=== PATIENT | male | born 1945 | race Caucasian/White ===

== ENCOUNTER 2016-12-03 12:14 | Emergency (ER) | payer OTHER ==
[2016-12-03 12:34] VITALS: RESP 16; TEMP 98.2
--- NOTE | 2016-12-03 13:02 | EDPHY ---
H & P Time Seen by Provider: 12/03/16 13:13 HPI/ROS: CHIEF COMPLAINT: Dog bite HISTORY OF PRESENT ILLNESS: This is a 71-year-old gentleman presenting to the emergency department reports being bit by his dog yesterday around 1600. Patient states he was grabbing the flies water and went to hit the fly when his dog bit him on his right hand. Patient states his did give him a couple of doses of doxycycline at home, but today has noticed swelling and redness to his left hand. Dog is up-to-date on all vaccines, patient states tetanus up-to- date. Denies any fever chills REVIEW OF SYSTEMS: Constitutional: No fever, no chills. Eyes: No blurred vision ENT: No sore throat. Cardiovascular: No chest pain, no palpitations. Respiratory: No cough, no shortness of breath. Gastrointestinal: No abdominal pain, no vomiting. Genitourinary: No urinary discomfort Musculoskeletal: No back pain. Right hand pain Skin: No rashes. Dog bite to right hand with redness Neurological: No headache. Smoking Status: Former smoker Physical Exam: General Appearance: Alert, no distress. Eyes: Pupils equal and round no pallor or injection. ENT, Mouth: Mucous membranes moist. Respiratory: There are no retractions, lungs are clear to auscultation. Cardiovascular: Regular rate and rhythm. Gastrointestinal: Abdomen is soft and nontender, no masses, bowel sounds normal. Neurological: No focal deficits Skin: Warm and dry, no rashes. Puncture wound noted to his dorsal aspect of right hand Musculoskeletal: Neck is supple nontender. Redness and mild swelling noted to right hand. No lymphangitis noted Extremities: symmetrical, full range of motion. Psychiatric: Patient is oriented X 3, there is no agitation. Constitutional: Initial Vital Signs Temperature (C) 36.8 C 12/03/16 12:16 Heart Rate 54 L 12/03/16 12:16 Respiratory Rate 16 12/03/16 12:16 Blood Pressure 152/66 H 12/03/16 12:16 O2 Sat (%) 96 12/03/16 12:16 O2 Delivery Mode Room Air Allergies/Adverse Reactions: No Known Allergies Allergy (Verified 12/03/16 12:15) Home Medications: Medication Instructions Recorded Enalapril Maleate [Vasotec 10 MG 20 mg PO DAILY 05/10/15 (*)] Metoprolol Tartrate [Lopressor 50 50 mg PO BID 05/10/15 mg (*)] Aspirin [Aspirin 325 mg (*)] 325 mg PO DAILY 08/24/15 Clopidogrel Bisulfate [Clopidogrel] 75 mg PO DAILY 08/24/15 Atorvastatin Calcium [Lipitor] 40 mg PO DAILY #30 tab 09/01/15 Ranolazine [Ranexa] 1,000 mg PO BID #60 tab.er 09/01/15 Clindamycin HCl [Clindamycin] 300 mg PO TID #30 cap 12/03/16 Medical Decision Making ED Course/Re-evaluation: Discussed the plan of care: CBC CMP, clindamycin 600 mg IV 1430: Discussed following up with Dr. Mims in the next couple days. Also discussed discharge instructions and monitoring for any worsening signs of infection if this should occur return to the ER. Discharge home---> stable. Differential Diagnosis: Other differential diagnosis considered but not limited to foreign body, lymphangitis, and laceration - Data Points Laboratory Results: Laboratory Results 12/03/16 13:15 12/03/16 13:15 12/03/16 12/03/16 13:15 13:15 WBC 7.32 10^3/uL 10^3/uL (3.80-9.50) RBC 4.21 10^6/uL L 10^6/uL (4.40-6.38) Hgb 13.8 g/dL g/dL (13.7-17.5) Hct 40.3 % % (40.0-51.0) MCV 95.7 fL fL (81.5-99.8) MCH 32.8 pg pg (27.9-34.1) MCHC 34.2 g/dL g/dL (32.4-36.7) RDW 13.1 % % (11.5-15.2) Plt Count 137 10^3/uL L 10^3/uL (150-400) MPV 9.7 fL fL (8.7-11.7) Neut % (Auto) 65.0 % % (39.3-74.2) Lymph % (Auto) 22.0 % % (15.0-45.0) Kidder % (Auto) 6.7 % % (4.5-13.0) Eos % (Auto) 5.5 % % (0.6-7.6) Baso % (Auto) 0.5 % % (0.3-1.7) Nucleat RBC Rel Count 0.0 % % (0.0-0.2) Absolute Neuts (auto) 4.76 10^3/uL 10^3/uL (1.70-6.50) Absolute Lymphs (auto) 1.61 10^3/uL 10^3/uL (1.00-3.00) Absolute Monos (auto) 0.49 10^3/uL 10^3/uL (0.30-0.80) Absolute Eos (auto) 0.40 10^3/uL 10^3/uL (0.03-0.40) Absolute Basos (auto) 0.04 10^3/uL 10^3/uL (0.02-0.10) Absolute Nucleated RBC 0.00 10^3/uL 10^3/uL (0-0.01) Immature Gran % 0.3 % % (0.0-1.1) Immature Gran # 0.02 10^3/uL 10^3/uL (0.00-0.10) Sodium 144 mEq/L mEq/L (134-144) Potassium 4.4 mEq/L mEq/L (3.5-5.2) Chloride 113 mEq/L H mEq/L (97-110) Carbon Dioxide 21 mEq/l L mEq/l (22-31) Anion Gap 10 mEq/L mEq/L (8-16) BUN 17 mg/dL mg/dL (7-23) Creatinine 0.8 mg/dL mg/dL (0.7-1.3) Estimated GFR > 60 Glucose 116 mg/dL H mg/dL (70-100) Calcium 8.9 mg/dL mg/dL (8.5-10.4) Medications Given: Discontinued Medications Clindamycin Phosphate/Dextrose (Cleocin 600 Mg (Premix)) 50 mls @ 100 mls/hr IV ONCE ONE PRN Reason: Protocol Stop: 12/03/16 13:32 Last Admin: 12/03/16 13:25 Dose: 50 mls Departure - Departure Disposition: Home, Routine, Self-Care Clinical Impression: Cellulitis Qualifiers: Site of cellulitis: extremity Site of cellulitis of extremity: upper extremity Laterality: right Qualified Code(s): L03.113 - Cellulitis of right upper limb Dog bite Qualifiers: Encounter type: initial encounter Qualified Code(s): W54.0XXA - Bitten by dog, initial encounter Condition: Good Instructions: Animal Bite (ED), Cellulitis (ED) Additional Instructions: Discussed discharge instructions the patient 1. Take all antibiotics as prescribed 2. Monitor for any worsening infection. I have drawn a line around the redness if the redness had spread increase in swelling return to the ER 3. Follow up Dr. Mims this week Referrals: Demetrius Mims MD [Primary Care Provider] - As per Instructions Prescriptions: Clindamycin HCl [Clindamycin] 300 mg PO TID #30 cap
[2016-12-03] MEDS ORDERED: CLINDAMYCIN 600 MG/DEXTROSE 50 ML IV ONE (13:03)
[2016-12-03 13:19] LABS: % IMMATURE GRANULYOCYTES 0.3 % (0.0-1.1); ABSOLUTE IMMATURE GRANULOCYTES 0.02 10^3/uL (0.00-0.10); ADD DIFF? NO; ADD MORPH? NO; ADD SCAN? NO; ATYPICAL LYMPHOCYTE FLAG 10 (0-99); FRAGMENT RBC FLAG 0 (0-99); HEMATOCRIT 40.3 % (40.0-51.0); HEMOGLOBIN 13.8 g/dL (13.7-17.5); LEFT SHIFT FLG 0 (0-99); LIPEMIA HEMOLYSIS FLAG 90 (0-99); MEAN CELL HEMOGLOBIN 32.8 pg (27.9-34.1); MEAN CELL HEMOGLOBIN CONCENTR. 34.2 g/dL (32.4-36.7); MEAN CELL VOLUME 95.7 fL (81.5-99.8); MEAN PLATELET VOLUME 9.7 fL (8.7-11.7); PLATELET CLUMPS FLAG 0 (0-99); PLATELET COUNT 137 10^3/uL (150-400); RED BLOOD CELL COUNT 4.21 10^6/uL (4.40-6.38); RED CELL DISTRIBUTION WIDTH 13.1 % (11.5-15.2)
[2016-12-03 14:03] LABS: ANION GAP 10 mEq/L (8-16); CALCIUM 8.9 mg/dL (8.5-10.4); CARBON DIOXIDE 21 mEq/l (22-31); CHLORIDE 113 mEq/L (97-110); CREATININE 0.8 mg/dL (0.7-1.3); GLOMERULAR FILTRATION RATE > 60; GLUCOSE 116 mg/dL (70-100); POTASSIUM 4.4 mEq/L (3.5-5.2); SODIUM 144 mEq/L (134-144)
[2016-12-03 14:32] VITALS: BP 106/81; PULSE 46; O2SAT 97
== END 2016-12-03 14:34 | disposition home or self-care (01) ==
DX: L03.113 Cellulitis of right upper limb (principal); Z79.82 Long term (current) use of aspirin; Z87.891 Personal history of nicotine dependence; W54.0XXA Bitten by dog, initial encounter
CPT/HCPCS: 96365

== ENCOUNTER 2016-12-03 18:04 | Inpatient (IN) | payer OTHER ==
--- NOTE | 2016-12-03 18:30 | EDPHY ---
H & P Stated Complaint: Pt here this morning;returns since area of redness expanding - Personal History Current Tetanus Diphtheria and Acellular Pertussis (TDAP): Yes - Medical/Surgical History Hx Asthma: No Hx Chronic Respiratory Disease: Yes Hx Diabetes: Yes Hx Cardiac Disease: Yes Hx Renal Disease: No Hx Cirrhosis: No Hx Alcoholism: No Hx HIV/AIDS: No Hx Splenectomy or Spleen Trauma: No Other PMH: Stent, HTN, ortho surgs - Social History Smoking Status: Former smoker Time Seen by Provider: 12/03/16 18:19 HPI/ROS: CHIEF COMPLAINT: Worsening hand pain post dog bite HISTORY OF PRESENT ILLNESS: 71-year-old male has a private vehicle complaining of worsening erythema and pain to his right hand previously imaged from earlier today for evaluation of dog bite to his right hand which occurred 2 days ago. He was given dose of IV clindamycin discharge and notes that the pain is worse, he has proximal migration of erythema since being discharged. She denies: Fever, chills, chest pain, dyspnea. Patient has a history of coronary artery disease, cardiac stenting, daily Plavix therapy. Coronary artery disease PRIMARY CARE PROVIDER: Felicita REVIEW OF SYSTEMS: A ten point review of systems was performed and is negative with the exception of the items mentioned in the HPI PAST MEDICAL & SURGICAL HISTORY: Coronary artery disease history. Coronary stenting. Dyslipidemia. Dementia. Hypertension. SOCIAL HISTORY: PHYSICAL EXAM (Prior to examination, patient consented to physical exam, hands were washed and my usual and customary physical exam procedures followed) 1) GENERAL: Well-developed, well-nourished, alert and oriented. Appears to be in no acute distress. 2) HEAD: Normocephalic, atraumatic 3) HEENT: Pupils equal, round, reactive to light bilaterally. Sclera anicteric. 4) NECK: Full range of motion, no meningeal signs. 5) LUNGS: Clear auscultation bilaterally, 6) HEART: Regular rate and rhythm, no murmur, no heave, no gallop. 7) ABDOMEN: No guarding, no rebound, no focal tenderness, 8) MUSCULOSKELETAL: Right upper extremity: Dorsum of the right hand is erythematous, indurated, edematous. Puncture wound noted, not through and through. He has pain with passive extension. There is migration of erythema compared to previously outlined area. 9) BACK: , no visual or palpable abnormality. 10) SKIN: erythema to the right hand . 11) Psychiatric: Patient is oriented X 3, there is no agitation. DIFFERENTIAL DIAGNOSIS: in a particular included a limited dog bite cellulitis , abscess, deep space infection, necrotizing fasciitis (Kim Romero) Constitutional: Initial Vital Signs Temperature (C) 37.2 C 12/03/16 18:05 Heart Rate 65 12/03/16 18:05 Respiratory Rate 18 12/03/16 18:05 Blood Pressure 172/74 H 12/03/16 18:05 O2 Sat (%) 95 12/03/16 18:05 O2 Delivery Mode Room Air Allergies/Adverse Reactions: No Known Allergies Allergy (Verified 12/03/16 18:05) Home Medications: Medication Instructions Recorded Aspirin [Aspirin 325 mg (*)] 325 mg PO DAILY 12/03/16 Cholecalciferol Vit D3 [Vitamin D3 10,000 units PO DAILY 12/03/16 (*)] Clopidogrel Bisulfate [Plavix (*)] 75 mg PO DAILY 12/03/16 Enalapril Maleate [Vasotec 10 MG 20 mg PO DAILY 12/03/16 (*)] Ezetimibe [Zetia 10 MG (*)] 10 mg PO DAILY 12/03/16 Herbals/Supplements -Info Only 1 ea PO DAILY 12/03/16 Metoprolol Tartrate [Lopressor 50 50 mg PO BID 12/03/16 mg (*)] Multivitamins [Multivitamin (*)] 1 each PO DAILY 12/03/16 Acetaminophen [Tylenol 325mg (*)] 650 mg PO Q4HRS PRN #0 tab 12/05/16 Amoxicillin/Clavulanate Pot 875 mg PO BID #14 tab 12/05/16 [Augmentin 875 MG TAB (*)] Calcium Carbonate [Tums 500MG (*)] 1,000 mg PO Q6 PRN #0 tab.chew 12/05/16 ED Images - Extremities Hands Back Left/Right: 1 - Puncture wound Medical Decision Making - Diagnostics Imaging Results: images reviewed by myself (Kim Romero) ED Course/Re-evaluation: 6:30 p.m.: Discussed case with secondary to supervising physician Dr. Pooja Ramirez. Old medical records reviewed. He was given dose of IV clindamycin at 1 :30 p.m. today. Recommended admission for observation of worsening dog bite cellulitis right hand possibility of deep space infection. Patient and are agreeable with this. 7:12 p.m. phone consultation with on-call Hand surgery Dr. Felix who will consult, recommended placed in a volar splint on the area, keeping the patient NPO after midnight. (Kim Romero) Other Provider: I have evaluated and participated in the management of this patient. My co- signature indicates that I have reviewed this chart and that I agree with the findings and the plan of care as documented. My personal history and physical findings include: 71-year-old immunocompetent male who was bitten by a dog, his pet, 2 days ago. He was seen earlier today in the emergency department and started on oral antibiotics. Since that time he has had increasing redness, no streaking. He has also had increasing swelling and pain with extension of his digits. Although I would not expect significant improvement to have occurred yet, the speed of his worsening is concerning. I agree with IV antibiotics and admission with hand consultation. (Pooja Ramirez) - Data Points Laboratory Results: Laboratory Results 12/04/16 04:16 12/04/16 04:16 Microbiology Results: MICROBIOLOGY 12/03/16 19:00 Blood Blood Culture - Preliminary 12/03/16 18:50 Blood Blood Culture - Preliminary Medications Given: Discontinued Medications Diphtheria/Tetanus/Acell Pertussis (Boostrix) 0.5 ml IM .ONCE ONE Stop: 12/03/16 19:10 Last Admin: 12/03/16 19:23 Dose: 0.5 ml Ezetimibe (Zetia) 10 mg PO DAILY [facility] Stop: 06/02/17 08:59 Last Admin: 12/05/16 09:01 Dose: 10 mg Enalapril Maleate (Vasotec) 20 mg PO DAILY [facility] Stop: 06/02/17 08:59 Last Admin: 12/05/16 09:01 Dose: 20 mg Ampicillin Sodium/Sulbactam (Sodium 3 gm/ Sodium Chloride) 100 mls @ 200 mls/ hr IV EDNOW ONE PRN Reason: Protocol Stop: 12/03/16 19:09 Last Admin: 12/03/16 19:20 Dose: 100 mls Ampicillin Sodium/Sulbactam (Sodium 3 gm/ Sodium Chloride) 100 mls @ 200 mls/ hr IV Q6H [facility] PRN Reason: Protocol Stop: 01/03/17 00:59 Last Admin: 12/05/16 06:32 Dose: 100 mls Metoprolol Tartrate (Lopressor) 50 mg PO BID [facility] Stop: 06/02/17 08:59 Last Admin: 12/05/16 09:00 Dose: 50 mg Oxycodone HCl (Oxycodone Ir) 5 - 10 mg PO Q3HRS PRN PRN Reason: Pain, Severe Able to Take PO Stop: 12/13/16 19:29 Last Admin: 12/04/16 01:25 Dose: 5 mg Departure - Departure Disposition: [facility] Clinical Impression: Dog bite cellulitis right hand Condition: Good
[2016-12-03] MEDS ORDERED: AMPICILLIN/SULBACTAM 3 GM in NS 100 ML IV ONE (18:40)
[2016-12-03] MEDS ORDERED: TDAP ADULT 0.5 ML INJ (BOOSTRIX) IM ONE (19:09)
[2016-12-03 19:10] LABS: % IMMATURE GRANULYOCYTES 0.3 % (0.0-1.1); ABSOLUTE IMMATURE GRANULOCYTES 0.03 10^3/uL (0.00-0.10); ADD DIFF? NO; ADD MORPH? NO; ADD SCAN? NO; ATYPICAL LYMPHOCYTE FLAG 10 (0-99); FRAGMENT RBC FLAG 0 (0-99); HEMATOCRIT 40.8 % (40.0-51.0); HEMOGLOBIN 13.9 g/dL (13.7-17.5); LEFT SHIFT FLG 0 (0-99); LIPEMIA HEMOLYSIS FLAG 90 (0-99); MEAN CELL HEMOGLOBIN 32.9 pg (27.9-34.1); MEAN CELL HEMOGLOBIN CONCENTR. 34.1 g/dL (32.4-36.7); MEAN CELL VOLUME 96.5 fL (81.5-99.8); MEAN PLATELET VOLUME 9.9 fL (8.7-11.7); PLATELET CLUMPS FLAG 10 (0-99); PLATELET COUNT 134 10^3/uL (150-400); RED BLOOD CELL COUNT 4.23 10^6/uL (4.40-6.38); RED CELL DISTRIBUTION WIDTH 13.1 % (11.5-15.2)
[2016-12-03 19:18] LABS: ANION GAP 11 mEq/L (8-16); CALCIUM 9.1 mg/dL (8.5-10.4); CARBON DIOXIDE 24 mEq/l (22-31); CHLORIDE 108 mEq/L (97-110); CREATININE 0.9 mg/dL (0.7-1.3); GLOMERULAR FILTRATION RATE > 60; GLUCOSE 102 mg/dL (70-100); SODIUM 143 mEq/L (134-144)
[2016-12-03] MEDS ORDERED: ACETAMINOPHEN 325 MG TAB PO PRN (19:30)
[2016-12-03] MEDS ORDERED: ONDANSETRON DISINTEGRATING 4 MG TAB PO PRN (19:30)
[2016-12-03] MEDS ORDERED: ONDANSETRON 4 MG/2 ML VIAL IVP PRN (19:30)
--- NOTE | 2016-12-03 19:57 | GHP ---
[f rep st] HISTORY AND PHYSICAL DATE OF ADMISSION: 12/03/2016 CHIEF COMPLAINT: Dog bite. HISTORY OF PRESENT ILLNESS: This is a 71-year-old man who was bitten by a dog 2 days ago. He was seen in the ED earlier, got a dose of IV clindamycin. He returned because he felt as though his cellulitis was getting worse. He notes that it is extremely painful in the dorsum of his hand. He has had no fevers. He has noted some redness on his hand as well. The redness extended into his finger since he was seen in the emergency department. PAST MEDICAL/PAST SURGICAL HISTORY: 1. Coronary artery disease, status post PCI in August of 2015. 2. Hyperlipidemia. 3. Dementia. 4. Hypertension. MEDICATIONS: Please see medication reconciliation. ALLERGIES: None. FAMILY HISTORY: The patient's parents are . SOCIAL HISTORY: He lives with his . He occasionally drinks wine. Does not smoke. REVIEW OF SYSTEMS: 10-point review of systems is conducted and is negative except for HPI. PHYSICAL EXAM: VITAL SIGNS: Blood pressure 132/74, heart rate 65, respiration rate 18, saturating 95% on room air. Temperature 36.2. GENERAL: Pleasant man who appears comfortable in no acute distress. HEENT: Normocephalic, atraumatic. CARDIOVASCULAR: Regular rate and rhythm. No murmurs, rubs, or gallops. PULMONARY: Lungs clear to auscultation bilaterally. ABDOMEN: Soft, nontender, nondistended. SKIN: No rash. : No Pretty. NEUROLOGIC: Alert and oriented x3. Moving all extremities. PSYCHIATRIC: Normal mood and affect. EXTREMITIES: Right upper extremity exam shows him to have some erythema as well as warmth on the dorsum of his right hand. This extends into the proximal part of his fingers as well as down to his wrist. There is a puncture wound on the dorsum of his hand. He is tender to palpation with flexion of his fingers. He has sensation intact in his fingers. LABS: White count is 10.1. Basic metabolic panel is normal. DATA: 1. I discussed this with Maulik Altamirano in the ED. Will admit to med/surg with a hand surgery consult. 2. Hand x-ray shows a chip avulsion fracture. 3. I reviewed his chart including his last PCI. IMPRESSION/PLAN: 71-year-old man with a dog bite cellulitis. 1. Cellulitis due to a dog bite: Agree with Unasyn. Will continue this. He will be seen by Hand Surgery tomorrow. I think this is a reasonable plan for tonight as I do not think he needs emergent surgery. Will follow his clinical course. 2. Coronary artery disease, status post PCI: If he needs surgery, will continue his beta christian. Would hold aspirin in the time being. Otherwise will continue statin. 3. Fracture: placed in splint in the ED. Ortho to see tomorrow. 4. Hyperlipidemia: Statin. 5. Dementia. 6. Hypertension. 7. Code status is full. 8. Venous thromboembolism risk is moderate. I will give him SCDs for now. If he has a prolonged hospital stay, would start him on Lovenox. /[id number]/MODL MTDD
--- NOTE | 2016-12-03 20:14 | SOAPPROG ---
SOAP Progress Note Assessment/Plan: Assessment: I was called to see Mr. Chacon this evening for his dog bite associated cellulitis. He will be given unsasyn and splinted tonight and I will see him in am for evaluation. If things turn around we will watch and wait. If it does not and abcess is suspected I will consider I and D. Plan: 12/03/16 20:12 Objective: Vital Signs Temp Pulse Resp BP Pulse Ox 37.2 C 65 18 172/74 H 95 12/03/16 18:05 12/03/16 18:05 12/03/16 18:05 12/03/16 18:05 12/03/16 18:05 ICD10 Worksheet Patient Problems: Problems Problem Status Onset Cellulitis Acute Crescendo angina Acute Dog bite Acute
[2016-12-03] MEDS: oxyCODONE IR 5 MG TAB PO PRN (21:04)
[2016-12-03] MEDS: AMPICILLIN/SULBACTAM 3 GM in NS 100 ML IV SCH (23:59)
[2016-12-04] MEDS: oxyCODONE IR 5 MG TAB PO PRN (01:25)
[2016-12-04] MEDS ORDERED: CALCIUM CARBONATE 500 MG CHEWABLE TAB PO PRN (01:26)
[2016-12-04 04:40] LABS: % IMMATURE GRANULYOCYTES 0.2 % (0.0-1.1); ABSOLUTE IMMATURE GRANULOCYTES 0.02 10^3/uL (0.00-0.10); ADD DIFF? NO; ADD MORPH? NO; ADD SCAN? NO; ATYPICAL LYMPHOCYTE FLAG 0 (0-99); FRAGMENT RBC FLAG 0 (0-99); HEMATOCRIT 35.3 % (40.0-51.0); HEMOGLOBIN 12.4 g/dL (13.7-17.5); LEFT SHIFT FLG 0 (0-99); LIPEMIA HEMOLYSIS FLAG 90 (0-99); MEAN CELL HEMOGLOBIN 33.4 pg (27.9-34.1); MEAN CELL HEMOGLOBIN CONCENTR. 35.1 g/dL (32.4-36.7); MEAN CELL VOLUME 95.1 fL (81.5-99.8); PLATELET CLUMPS FLAG 10 (0-99); PLATELET COUNT 113 10^3/uL (150-400); RED BLOOD CELL COUNT 3.71 10^6/uL (4.40-6.38)
[2016-12-04 04:56] LABS: ANION GAP 6 mEq/L (8-16); CALCIUM 8.4 mg/dL (8.5-10.4); CARBON DIOXIDE 24 mEq/l (22-31); CHLORIDE 112 mEq/L (97-110); CREATININE 0.8 mg/dL (0.7-1.3); GLOMERULAR FILTRATION RATE > 60; GLUCOSE 100 mg/dL (70-100); SODIUM 142 mEq/L (134-144)
[2016-12-04] MEDS: AMPICILLIN/SULBACTAM 3 GM in NS 100 ML IV SCH ×3 (06:03→18:02)
--- NOTE | 2016-12-04 06:46 | SOAPPROG ---
SOAP Progress Note Assessment/Plan: Assessment: I was called to see Mr. Chacon this evening for his dog bite associated cellulitis. He will be given unsasyn and splinted tonight and I will see him in am for evaluation. If things turn around we will watch and wait. If it does not and abcess is suspected I will consider I and D. Plan: I have examined the patient this morning. No surgery planned. Dramatic improvement with bulky dressing and splint and unaysn. Likely an additional 24 hours IV antibiotics. May eat today. Consult dictated. 12/03/16 20:12 12/04/16 06:45 Objective: Vital Signs Temp Pulse Resp BP Pulse Ox 37.5 C 62 14 113/50 L 94 12/04/16 04:00 12/04/16 04:00 12/04/16 04:00 12/04/16 04:00 12/04/16 04:00 Laboratory Results 12/04/16 04:16 12/04/16 04:16 12/03/16 12/04/16 12/05/16 05:59 05:59 05:59 Intake Total 200 Balance 200 ICD10 Worksheet Patient Problems: Problems Problem Status Onset Crescendo angina Acute
--- NOTE | 2016-12-04 07:34 | GCON ---
[f rep st] CONSULTATION CHIEF COMPLAINT: Right hand pain, swelling and infection. HISTORY OF PRESENT ILLNESS: I was consulted last night by the emergency room team and the [facility] team on the patient for evaluation of his right hand. He had been bitten by a dog 48 hours ago an d had presented to the emergency room yesterday morning with an evolving red and swollen hand. He wa s given a dose of vancomycin and sent home with instruction to followup, but to return should things begin to worsen. He returned last evening with increasing swelling, redness and extension of the in volved area and was seen in the emergency room. He was started on IV Unasyn and admitted to the hospitalist service for evaluation at the request of the hospitalist service for hand surgery evaluation. EXAMINATION: The examination of the patient's right hand this morning at 5:45 a.m. shows a markedly decreased erythema line relative to yesterday. There is no palpable area of fluctuance. There is ed gris on the back of the hand. Patient reports that it is markedly improved. He is moving his fingers freely without pain. There is a small, healed scab on the dorsum of the hand, which was the apparent origin of the penetrating trauma, and there is no evidence of a fluctuant pocket beneath this area, just subcutaneous edema. Patient is neurologically intact and has good vascular supply at the digit s. There is no lymphangitis extending up the arm, and there are no swollen lymph nodes in the antecu bital fossa or the axillary area. IMAGING: X-rays show a small avulsion fracture. This is away from the area of the scab, and this i s something that can just be observed. ASSESSMENT: Cellulitis right hand, secondary to dog bite. PLAN AND RECOMMENDATIONS: I have placed an additional bulky, formal hand dressing on the patient wh ich should help things. He had been placed in a wrist splint last night appropriately. The patient s ays he is feeling considerably better. His hand looks much better. I think an additional 24-hour cou rse of IV Unasyn, followed by conversion to Augmentin will solve this situation. It is unlikely he i s going to need surgical intervention. I have given the nurses' permission to feed him today, and we will see what happens over the next 24 hours. I will check in with the hospitalist tomorrow morning to see if patient continues to improve and do a repeat physical examination tomorrow if necessary, if things do not continue to turn around. /[id number]/MODL
[2016-12-04] MEDS: ENALAPRIL MALEATE 10 MG TAB PO SCH (09:12)
[2016-12-04] MEDS: EZETIMIBE 10 MG TAB PO SCH (09:13)
[2016-12-04] MEDS: METOPROLOL TARTRATE 50 MG TAB PO SCH ×2 (09:13→21:08)
--- NOTE | 2016-12-04 12:57 | HOSPPROG ---
Hospitalist Progress Note Assessment/Plan: 71y male with dog bite. This is my first encounter, chart reviewed. #Dog bite appreciate Dr Felix cont IV abx no surgery indicated currently #Cellulitis better cont IV unasyn #Hx CAD stable #Fracture follow ortho #Dispo hopefully home in am on PO abx await ortho recs Subjective: eager to go home. Pain controlled. no other issues. Objective: Vital Signs Temp Pulse Resp BP Pulse Ox 36.9 C 51 L 18 118/55 L 94 12/04/16 11:46 12/04/16 11:46 12/04/16 11:46 12/04/16 11:46 12/04/16 11:46 Laboratory Results 12/04/16 04:16 12/04/16 04:16 12/03/16 12/04/16 12/05/16 05:59 05:59 05:59 Intake Total 200 Balance 200 - Physical Exam Constitutional: no apparent distress, appears nourished, not in pain Eyes: PERRL, anicteric sclera, EOMI Ears, Nose, Mouth, Throat: moist mucous membranes, hearing normal, ears appear normal Cardiovascular: No JVD, No tachycardia, No edema Respiratory: no respiratory distress, no rales or rhonchi, reduced air movement Gastrointestinal: No tenderness, No ascites, No guarding Skin: warm, abrasion, erythema Musculoskeletal: full muscle strength, joint tenderness, pain with ROM Psychiatric: not anxious, not encephalopathic, poor insight, poor judgement ICD10 Worksheet Patient Problems: Problems Problem Status Onset Crescendo angina Acute
[2016-12-05] MEDS: AMPICILLIN/SULBACTAM 3 GM in NS 100 ML IV SCH ×2 (00:04→06:32)
[2016-12-05 07:16] VITALS: BP 132/62; RESP 12; TEMP 98.7; O2SAT 92
[2016-12-05] MEDS: METOPROLOL TARTRATE 50 MG TAB PO SCH (09:00)
[2016-12-05] MEDS: ENALAPRIL MALEATE 10 MG TAB PO SCH (09:01)
[2016-12-05] MEDS: EZETIMIBE 10 MG TAB PO SCH (09:01)
[2016-12-05 09:03] VITALS: PULSE 56
--- NOTE | 2016-12-05 16:43 | GDS ---
[f rep st] DISCHARGE SUMMARY DISCHARGE DIAGNOSES: 1. Cellulitis. 2. Dog bite. CONSULTATIONS: Orthopedics, Dr. Felix. STUDIES AND PROCEDURES DONE: Hand x-ray. PHYSICAL EXAM: GENERAL: The patient is alert. VITAL SIGNS: Afebrile at 37.1, pulse is 48, respirato ry rate 12, blood pressure is 132/62. He is saturating 92% on room air. I have seen and evaluated th e patient on the day of discharge. HOSPITAL COURSE: The patient is a 71-year-old male who presented to the emergency room after suffer ing a dog bite. He was evaluated and diagnosed with: 1. Cellulitis and infection secondary to dog bite. During this hospitalization, he received a consu ltation from Dr. Felix of orthopedics. Please refer to his notes for specific details. The patient w as treated with IV Unasyn. He has responded well. His infection is resolving and continues to improv e. He will be discharged with oral Augmentin in the outpatient setting to follow up with his primary care physician, as well as Dr. Felix. 2. History of coronary artery disease. This is stable. 3. Fracture. Again, the patient will follow with Dr. Felix in the outpatient setting. DISPOSITION: The patient will be discharged home independently. PENDING STUDIES: None. DISCHARGE MEDICATIONS: He has been provided a prescription for Augmentin 875 b[address]. #14. FOLLOWUP: Again, will be with his primary care physician, Dr. Gaudencio Mims, as well as Dr. Felix of rthopedics. I spent greater than 35 minutes in the care, coordination, and management of the patient's dispositi on. /[id number]/MODL
== END 2016-12-05 13:26 | disposition home or self-care (01) | DRG 603 ==
LOC: F3E 20:45 → OBSVTOIN 12-04 12:59
PROVIDERS: ADMIT Student in an Organized Health Care Education/Training Program; ATTEND Student in an Organized Health Care Education/Training Program
DX: L03.113 Cellulitis of right upper limb (principal); W54.0XXD Bitten by dog, subsequent encounter; I10 Essential (primary) hypertension; I25.10 Atherosclerotic heart disease of native coronary artery without angina pectoris; Z95.5 Presence of coronary angioplasty implant and graft; E78.5 Hyperlipidemia, unspecified; F03.90 Unspecified dementia, unspecified severity, without behavioral disturbance, psychotic disturbance, mood disturbance, and anxiety
CPT/HCPCS: 96365; 96374; G0378; J0295; L3908

== ENCOUNTER 2017-04-02 13:55 | Inpatient (IN) | payer OTHER ==
--- NOTE | 2017-04-02 14:36 | EDPHY ---
H & P Stated Complaint: bilat flank pain/difficulty urinating Time Seen by Provider: 04/02/17 14:20 HPI/ROS: CHIEF COMPLAINT: Intermittent back pain, left leg pain, acute left leg rash, altered mental status HISTORY OF PRESENT ILLNESS: The patient presents to the ED with complaints of acute weakness and altered mental status over the past 2 days. The patient reportedly has had a several week history of low back pain attributed to a hamstring injury. The patient's reports that yesterday he was having increasing amount of pain in his left leg. The patient reportedly was unable to walk in the evening secondary to severe pain. He was also noted to be confused and disoriented at that point time. The patient went to bed. He awoke today with improved mentation however still seemed quite fatigued. The patient complained of ongoing pain in the right leg. There was reported history of urinary incontinence and questionable dysuria. This prompted the patient's visits to the emergency department. The patient does have a history of remote hospitalization for cellulitis secondary to an animal bite. REVIEW OF SYSTEMS: A comprehensive 10 point review of systems is otherwise negative aside from elements mentioned in the history of present illness. Source: Patient - Personal History Current Tetanus/Diphtheria Vaccine: Yes - Medical/Surgical History Hx Asthma: No Hx Chronic Respiratory Disease: Yes Hx Diabetes: Yes Hx Cardiac Disease: Yes Hx Renal Disease: No Hx Cirrhosis: No Hx Alcoholism: No Hx HIV/AIDS: No Hx Splenectomy or Spleen Trauma: No Other PMH: Stent, HTN, ortho surgs - Social History Smoking Status: Former smoker - Physical Exam Exam: General Appearance: Alert, no distress Eyes: Pupils equal and round no pallor or injection ENT, Mouth: Mucous membranes moist Respiratory: There are no retractions, lungs are clear to auscultation Cardiovascular: Regular rate and rhythm Gastrointestinal: Abdomen is soft and nontender, no masses, bowel sounds normal Neurological: A&O, normal motor function, normal sensory exam, normal cranial nerves Skin: Erythematous rash noted to the left mid thigh with possible vesicular lesions noted, additional area of erythema and mild petechiae noted to the left pérez Musculoskeletal: Neck is supple nontender Extremities: symmetrical, full range of motion Constitutional: Initial Vital Signs Temperature (C) 37 C 04/02/17 14:00 Heart Rate 82 04/02/17 14:00 Respiratory Rate 16 04/02/17 14:00 Blood Pressure 146/55 H 04/02/17 14:00 O2 Sat (%) 93 04/02/17 14:00 O2 Delivery Mode Room Air Allergies/Adverse Reactions: No Known Allergies Allergy (Verified 04/02/17 13:59) Home Medications: Medication Instructions Recorded Aspirin [Aspirin 325 mg (*)] 325 mg PO DAILY 12/03/16 Cholecalciferol Vit D3 [Vitamin D3 10,000 units PO DAILY 12/03/16 (*)] Clopidogrel Bisulfate [Plavix (*)] 75 mg PO DAILY 12/03/16 Enalapril Maleate [Vasotec 10 MG 20 mg PO DAILY 12/03/16 (*)] Ezetimibe [Zetia 10 MG (*)] 10 mg PO DAILY 12/03/16 Herbals/Supplements -Info Only 1 ea PO DAILY 12/03/16 Metoprolol Tartrate [Lopressor 50 50 mg PO BID 12/03/16 mg (*)] Multivitamins [Multivitamin (*)] 1 each PO DAILY 12/03/16 Acetaminophen [Tylenol 325mg (*)] 650 mg PO Q4HRS PRN #0 tab 12/05/16 Medical Decision Making ED Course/Re-evaluation: The patient presents to the ED with acute mental status changes which have improved today, subjective fever, leukocytosis and evidence of cellulitis on his left leg. The patient's initial lactate is reassuring. The patient does not have SIRS criteria. The patient's urinalysis demonstrates no evidence of an infection. The patient' s CBC does demonstrate leukocytosis with immature forms. The patient had an IV established. He received 1 g of IV Ancef. The patient was also given Valtrex orally for possible zoster. Blood cultures were obtained in the emergency department prior to receiving IV antibiotics. The patient presents to the ED after an episode of acute confusion in the setting of a likely cellulitis of the left leg. Given the patient's age, bandemia and history of altered mental status I do feel that he should be admitted to the hospital for close observation this evening. The patient has no evidence of sepsis, severe sepsis or septic shock. Consultation was made with Dr. Maharaj from the hospitalist service who will admit the patient. Differential Diagnosis: Differential diagnosis considered includes cellulitis, metabolic abnormality, urinary tract infection, medication side effect, shingles, prostatitis, renal failure - Data Points Laboratory Results: Laboratory Results 04/02/17 14:51 04/02/17 14:51 04/02/17 04/02/17 04/02/17 16:27 15:38 14:51 WBC RBC Hgb Hct MCV MCH MCHC RDW Plt Count MPV Neut % (Auto) Lymph % (Auto) [place] % (Auto) Eos % (Auto) Baso % (Auto) Nucleat RBC Rel Count Absolute Neuts (auto) Absolute Lymphs (auto) Absolute Monos (auto) Absolute Eos (auto) Absolute Basos (auto) Absolute Nucleated RBC Immature Gran % Seg Neutrophils % Band Neutrophils % Lymphocytes % Monocytes % Metamyelocytes % Immature Gran # Absolute Seg Neuts Absolute Band Neuts Absolute Lymphocytes Absolute Monocytes Absolute Metamyelocyte RBC/WBC/PLT Morphology Dohle Bodies Platelet Estimate ABG Lactic Acid 1.3 mmol/L mmol/L (0.5-1.6) Sodium 139 mEq/L mEq/L (134-144) Potassium 3.9 mEq/L mEq/L (3.5-5.2) Chloride 105 mEq/L mEq/L (97-110) Carbon Dioxide 22 mEq/l mEq/l (22-31) Anion Gap 12 mEq/L mEq/L (8-16) BUN 28 mg/dL H mg/dL (7-23) Creatinine 1.3 mg/dL mg/dL (0.7-1.3) Estimated GFR 54 Glucose 120 mg/dL H mg/dL (70-100) Calcium 9.4 mg/dL mg/dL (8.5-10.4) Urine Color YELLOW Urine Appearance HAZY Urine pH 5.0 (5.0-7.5) Ur Specific [place] 1.024 (1.002-1.030) Urine Protein 1+ H (NEGATIVE) Urine Ketones TRACE H (NEGATIVE) Urine Blood NEGATIVE (NEGATIVE) Urine Nitrate NEGATIVE (NEGATIVE) Urine Bilirubin NEGATIVE (NEGATIVE) Urine Urobilinogen NEGATIVE EU EU (0.2-1.0) Ur Leukocyte Esterase NEGATIVE (NEGATIVE) Urine RBC 1-3 /hpf /hpf (0-3) Urine WBC 1-3 /hpf /hpf (0-3) Ur Epithelial Cells NONE SEEN /lpf /lpf (NONE-1+) Urine Mucus TRACE /lpf /lpf (NONE-1+) Urine Glucose NEGATIVE (NEGATIVE) 04/02/17 14:51 WBC 22.72 10^3/uL H 10^3/uL (3.80-9.50) RBC 4.14 10^6/uL L 10^6/uL (4.40-6.38) Hgb 13.9 g/dL g/dL (13.7-17.5) Hct 39.5 % L % (40.0-51.0) MCV 95.4 fL fL (81.5-99.8) MCH 33.6 pg pg (27.9-34.1) MCHC 35.2 g/dL g/dL (32.4-36.7) RDW 13.2 % % (11.5-15.2) Plt Count 115 10^3/uL L 10^3/uL (150-400) MPV 9.4 fL fL (8.7-11.7) Neut % (Auto) Not Reported Lymph % (Auto) Not Reported [place] % (Auto) Not Reported Eos % (Auto) Not Reported Baso % (Auto) Not Reported Nucleat RBC Rel Count 0.0 % % (0.0-0.2) Absolute Neuts (auto) Not Reported Absolute Lymphs (auto) Not Reported Absolute Monos (auto) Not Reported Absolute Eos (auto) Not Reported Absolute Basos (auto) Not Reported Absolute Nucleated RBC 0.00 10^3/uL 10^3/uL (0-0.01) Immature Gran % Not Reported Seg Neutrophils % 79 % % Band Neutrophils % 12 % % Lymphocytes % 7 % % Monocytes % 1 % % Metamyelocytes % 1 % % Immature Gran # Not Reported Absolute Seg Neuts 17.95 10^/uL H 10^/uL (1.70-6.50) Absolute Band Neuts 2.73 10^3/uL H 10^3/uL (0.00-0.70) Absolute Lymphocytes 1.59 10^3/uL 10^3/uL (1.00-3.00) Absolute Monocytes 0.23 10^3/uL L 10^3/uL (0.30-0.80) Absolute Metamyelocyte 0.23 10^3/mL H 10^3/mL (0.00-0.00) RBC/WBC/PLT Morphology NORMAL (NORMAL) Dohle Bodies PRESENT H Platelet Estimate DECREASED L (ADEQ) ABG Lactic Acid Sodium Potassium Chloride Carbon Dioxide Anion Gap BUN Creatinine Estimated GFR Glucose Calcium Urine Color Urine Appearance Urine pH Ur Specific [place] Urine Protein Urine Ketones Urine Blood Urine Nitrate Urine Bilirubin Urine Urobilinogen Ur Leukocyte Esterase Urine RBC Urine WBC Ur Epithelial Cells Urine Mucus Urine Glucose Medications Given: Discontinued Medications Sodium Chloride (Ns) 1,000 mls @ 0 mls/hr IV ONCE ONE; Wide Open PRN Reason: Protocol Stop: 04/02/17 15:32 Last Admin: 04/02/17 15:45 Dose: 1,000 mls Sodium Chloride (Ns) 1,000 mls @ 0 mls/hr IV EDNOW ONE; Wide Open PRN Reason: Protocol Stop: 04/02/17 16:54 Last Admin: 04/02/17 17:05 Dose: 1,000 mls Cefazolin Sodium/Dextrose (Ancef 1 Gm (Premix)) 50 mls @ 200 mls/hr IV EDNOW ONE PRN Reason: Protocol Stop: 04/02/17 17:37 Last Admin: 04/02/17 17:45 Dose: 50 mls Valacyclovir HCl (Valtrex) 1,000 mg PO EDNOW ONE Stop: 04/02/17 17:31 Last Admin: 04/02/17 18:22 Dose: 1,000 mg Departure - Departure Disposition: [facility] Acute Clinical Impression: Left leg cellulitis, Possible zoster, Leukocytosis Condition: Fair Referrals: Naresh Rainey MD [Primary Care Provider] - As per Instructions
[2017-04-02 14:59] LABS: ADD DIFF? YES; ADD MORPH? NO; ADD SCAN? NO; ATYPICAL LYMPHOCYTE FLAG 0 (0-99); FRAGMENT RBC FLAG 0 (0-99); HEMATOCRIT 39.5 % (40.0-51.0); HEMOGLOBIN 13.9 g/dL (13.7-17.5); LEFT SHIFT FLG 90 (0-99); LIPEMIA HEMOLYSIS FLAG 90 (0-99); MEAN CELL HEMOGLOBIN 33.6 pg (27.9-34.1); MEAN CELL HEMOGLOBIN CONCENTR. 35.2 g/dL (32.4-36.7); MEAN CELL VOLUME 95.4 fL (81.5-99.8); MEAN PLATELET VOLUME 9.4 fL (8.7-11.7); PLATELET CLUMPS FLAG 0 (0-99); PLATELET COUNT 115 10^3/uL (150-400); RED BLOOD CELL COUNT 4.14 10^6/uL (4.40-6.38); RED CELL DISTRIBUTION WIDTH 13.2 % (11.5-15.2)
[2017-04-02 15:21] LABS: ANION GAP 12 mEq/L (8-16); CALCIUM 9.4 mg/dL (8.5-10.4); CARBON DIOXIDE 22 mEq/l (22-31); CHLORIDE 105 mEq/L (97-110); CREATININE 1.3 mg/dL (0.7-1.3); GLOMERULAR FILTRATION RATE 54; GLUCOSE 120 mg/dL (70-100); POTASSIUM 3.9 mEq/L (3.5-5.2); SODIUM 139 mEq/L (134-144)
[2017-04-02] MEDS ORDERED: NS 1,000 ML IV ONE ×2 (15:31→16:53)
[2017-04-02 15:39] LABS: PLATELET ESTIMATE DECREASED (ADEQ)
[2017-04-02 16:57] LABS: COLOR YELLOW; LEUKOCYTE ESTERASE,URINE NEGATIVE (NEGATIVE); NITRITE,URINE NEGATIVE (NEGATIVE)
[2017-04-02 16:58] LABS: MUCUS TRACE /lpf (NONE-1+)
[2017-04-02] MEDS ORDERED: valACYclovir 500 MG TAB PO ONE (17:30)
[2017-04-02] MEDS ORDERED: ACETAMINOPHEN 325 MG TAB PO PRN (20:26)
[2017-04-02] MEDS ORDERED: ONDANSETRON DISINTEGRATING 4 MG TAB PO PRN (20:26)
[2017-04-02] MEDS ORDERED: ONDANSETRON 4 MG/2 ML VIAL IVP PRN (20:26)
--- NOTE | 2017-04-02 21:37 | PDGENHP ---
History and Physical - Chief Complaint Acute encephalopathy - History of Present Illness 71 yo M p/w acute encephalopathy characterized as confusion beyond that of his baseline w/ associated erythema, tenderness and edema located along the left lower extremity, beginning with petechial lesions located on the left pérez, and advancing as confluent erythema proximally. His left groin and bilateral flanks also have associated pain. His noted the mental status changes and urinary incontinence, and sought medical attention. Patient is unable to otherwise provide any meaningful history. History Information - Allergies/Home Medication List Allergies/Adverse Reactions: No Known Allergies Allergy (Verified 04/02/17 13:59) Home Medications: Aspirin [Aspirin 325 mg (*)] 325 mg PO DAILY 12/03/16 [Last Taken 12/03/16] Cholecalciferol Vit D3 [Vitamin D3 (*)] 10,000 units PO DAILY 12/03/16 [Last Taken 04/02/17] Clopidogrel Bisulfate [Plavix (*)] 75 mg PO DAILY 12/03/16 [Last Taken 04/02/17] Enalapril Maleate [Vasotec 10 MG (*)] 20 mg PO DAILY 12/03/16 [Last Taken ] Ezetimibe [Zetia 10 MG (*)] 10 mg PO DAILY 12/03/16 [Last Taken 04/02/17] Herbals/Supplements -Info Only 1 ea PO DAILY 12/03/16 [Last Taken Unknown] Metoprolol Tartrate [Lopressor 50 mg (*)] 50 mg PO BID 12/03/16 [Last Taken ] Multivitamins [Multivitamin (*)] 1 each PO DAILY 12/03/16 [Last Taken Unknown] I have personally reviewed and updated: family history, medical history, social history, surgical history - Past Medical History Additional medical history: Coronary artery disease status post PCI in August of 2015. Hypertension. Hyperlipidemia. Dementia. Dog bite in November of 2016 - Surgical History Additional surgical history: bilateral knee replacements - Family History Additional family history: no recent sick family contacts, parents are both - Social History Smoking Status: Former smoker Alcohol Use: Occasionally (1 alcoholic beverage daily, never experienced alcohol withdrawal) Drug Use: None Additional social history: lives with Review of Systems Review of Systems: ROS: 10pt was reviewed & negative except for what was stated in HPI & below Skin: Reports: other ( erythema, petechiae, edema, tenderness) Neurological: Reports: other ( confusion) Physical Exam Physical Exam: Temp Pulse Resp BP Pulse Ox 36.7 C 66 18 129/60 H 96 04/02/17 20:06 04/02/17 20:06 04/02/17 20:06 04/02/17 20:06 04/02/17 20:06 Constitutional: no apparent distress, appears nourished, uncomfortable ( bilateral flank pain) Eyes: PERRL, anicteric sclera, EOMI Ears, Nose, Mouth, Throat: moist mucous membranes, hearing normal, ears appear normal, no oral mucosal ulcers Cardiovascular: systolic murmur ( 1/6 at the right sternal border), edema ( trace left lower extremity edema), No irregularly irregular, No tachycardia Respiratory: no respiratory distress, no rales or rhonchi, clear to auscultation Gastrointestinal: normoactive bowel sounds, soft, non-tender abdomen, no palpable masses, No distension Genitourinary: no bladder fullness, no bladder tenderness, other ( no overt CVA tenderness) Skin: other ( confluent erythema extending from the left pérez to the left proximal thigh with petechial lesions over the left pérez, tenderness, soft tissue edema) Musculoskeletal: other ( full extension of the left knee without any pain elicited, full range of motion left ankle without any pain elicited) Neurologic: sensation intact bilaterally, other ( alert awake oriented x1 to person only), No facial droop Psychiatric: not anxious, not encephalopathic, flat affect, poor insight, poor memory, other ( concentration is 0/7), No agitated Lymph, Heme, Immunologic: other (tender left inguinal lymphadenopathy) Lab Data & Imaging Review 04/02/17 14:51 04/02/17 14:51 WBC 22.72 10^3/uL (3.80-9.50) H 04/02/17 14:51 RBC 4.14 10^6/uL (4.40-6.38) L 04/02/17 14:51 Hgb 13.9 g/dL (13.7-17.5) 04/02/17 14:51 Hct 39.5 % (40.0-51.0) L 04/02/17 14:51 MCV 95.4 fL (81.5-99.8) 04/02/17 14:51 MCH 33.6 pg (27.9-34.1) 04/02/17 14:51 MCHC 35.2 g/dL (32.4-36.7) 04/02/17 14:51 RDW 13.2 % (11.5-15.2) 04/02/17 14:51 Plt Count 115 10^3/uL (150-400) L 04/02/17 14:51 MPV 9.4 fL (8.7-11.7) 04/02/17 14:51 Neut % (Auto) Not Reported 04/02/17 14:51 Lymph % (Auto) Not Reported 04/02/17 14:51 [place] % (Auto) Not Reported 04/02/17 14:51 Eos % (Auto) Not Reported 04/02/17 14:51 Baso % (Auto) Not Reported 04/02/17 14:51 Nucleat RBC Rel Count 0.0 % (0.0-0.2) 04/02/17 14:51 Absolute Neuts (auto) Not Reported 04/02/17 14:51 Absolute Lymphs (auto) Not Reported 04/02/17 14:51 Absolute Monos (auto) Not Reported 04/02/17 14:51 Absolute Eos (auto) Not Reported 04/02/17 14:51 Absolute Basos (auto) Not Reported 04/02/17 14:51 Absolute Nucleated RBC 0.00 10^3/uL (0-0.01) 04/02/17 14:51 Immature Gran % Not Reported 04/02/17 14:51 Seg Neutrophils % 79 % 04/02/17 14:51 Band Neutrophils % 12 % 04/02/17 14:51 Lymphocytes % 7 % 04/02/17 14:51 Monocytes % 1 % 04/02/17 14:51 Metamyelocytes % 1 % 04/02/17 14:51 Immature Gran # Not Reported 04/02/17 14:51 Absolute Seg Neuts 17.95 10^/uL (1.70-6.50) H 04/02/17 14:51 Absolute Band Neuts 2.73 10^3/uL (0.00-0.70) H 04/02/17 14:51 Absolute Lymphocytes 1.59 10^3/uL (1.00-3.00) 04/02/17 14:51 Absolute Monocytes 0.23 10^3/uL (0.30-0.80) L 04/02/17 14:51 Absolute Metamyelocyte 0.23 10^3/mL (0.00-0.00) H 04/02/17 14:51 RBC/WBC/PLT Morphology NORMAL (NORMAL) 04/02/17 14:51 Dohle Bodies PRESENT H 04/02/17 14:51 Platelet Estimate DECREASED (ADEQ) L 04/02/17 14:51 ABG Lactic Acid 1.3 mmol/L (0.5-1.6) 04/02/17 15:38 Sodium 139 mEq/L (134-144) 04/02/17 14:51 Potassium 3.9 mEq/L (3.5-5.2) 04/02/17 14:51 Chloride 105 mEq/L (97-110) 04/02/17 14:51 Carbon Dioxide 22 mEq/l (22-31) 04/02/17 14:51 Anion Gap 12 mEq/L (8-16) 04/02/17 14:51 BUN 28 mg/dL (7-23) H 04/02/17 14:51 Creatinine 1.3 mg/dL (0.7-1.3) 04/02/17 14:51 Estimated GFR 54 04/02/17 14:51 Glucose 120 mg/dL (70-100) H 04/02/17 14:51 Calcium 9.4 mg/dL (8.5-10.4) 04/02/17 14:51 Urine Color YELLOW 04/02/17 16:27 Urine Appearance HAZY 04/02/17 16:27 Urine pH 5.0 (5.0-7.5) 04/02/17 16:27 Ur Specific [place] 1.024 (1.002-1.030) 04/02/17 16:27 Urine Protein 1+ (NEGATIVE) H 04/02/17 16:27 Urine Ketones TRACE (NEGATIVE) H 04/02/17 16:27 Urine Blood NEGATIVE (NEGATIVE) 04/02/17 16:27 Urine Nitrate NEGATIVE (NEGATIVE) 04/02/17 16:27 Urine Bilirubin NEGATIVE (NEGATIVE) 04/02/17 16:27 Urine Urobilinogen NEGATIVE EU (0.2-1.0) 04/02/17 16:27 Ur Leukocyte Esterase NEGATIVE (NEGATIVE) 04/02/17 16:27 Urine RBC 1-3 /hpf (0-3) 04/02/17 16:27 Urine WBC 1-3 /hpf (0-3) 04/02/17 16:27 Ur Epithelial Cells NONE SEEN /lpf (NONE-1+) 04/02/17 16:27 Urine Mucus TRACE /lpf (NONE-1+) 04/02/17 16:27 Urine Glucose NEGATIVE (NEGATIVE) 04/02/17 16:27 Assessment & Plan Assessment: 71-year-old male presents with acute on chronic encephalopathy in the setting of acute cellulitis Plan: 1. Encephalopathy. Acute on chronic, evidenced by global brain dysfunction characterized as confusion, disorientation, poor concentration all of which is an acute change from patient's baseline per his , most likely secondary to the toxic effects of infection as well as the metabolic effects of acute kidney injury - continue cognitive evals - assess the patient in the presence of his , get collateral information - treat infection 2. Cellulitis. Acute on chronic, new problem this provider, further workup indicated. Non purulent, located in the left lower extremity, the source of skin break is most likely in the distal left lower extremity and subsequent extension proximally thereafter with inguinal lymphadenopathy - reviewed outside records including 12/05/2016 discharge summary by Myranda Sevilla , characterizing patient's most recent hospitalization for dog bite with cellulitis, treated with Unasyn and transition to Augmentin, no evidence of MRSA at that time - blood culture sent - get left lower extremity ultrasound to ensure no DVT - discussed with Dr. Rachid Reed in the emergency department, he should with me that the lesions on the left pérez. Concerning for shingles and he treated the patient with 1000 mg of valacyclovir - get Infectious Disease consultation to help determine whether the area in question is bacterial super infection the setting of recent shingles or simply an area of petechiae from soft tissue injury and infection - continue IV Ancef, gauge effect - monitor white blood cell count, severe leukocytosis on presentation 3. Acute kidney injury. Baseline creatinine is less than 1, presently 1.3 in the setting of infection, most likely hypovolemia, give IV normal saline and repeat level in a.m. 4. Coronary artery disease. Chronic, continue home medications with the exception of ALMA ROSA-inhibitor, hold given acute kidney injury 5. Flank pain. Unclear etiology, urinalysis demonstrates only a ketones from hypovolemia, patient reports that he is urinating well and he has had verifiable incontinent, making lower urinary tract obstruction much less likely - if creatinine level not improving, get renal ultrasound Diet. Regular prophylaxis. High risk patient, heparin subcu Code. Full Disposition. Anticipated discharge is , pending clinical improvement of issues as outlined above.
[2017-04-02] MEDS ORDERED: ceFAZolin 3 GM in D5W 100 ML IV SCH (21:45)
[2017-04-02] MEDS: LIDOCAINE 5% 1 EA PATCH TD SCH (22:40)
[2017-04-02] MEDS: ceFAZolin 2 GM/DEXTROSE 100 ML IV SCH (22:43)
[2017-04-02] MEDS: METOPROLOL TARTRATE 50 MG TAB PO SCH (22:43)
[2017-04-03 05:33] LABS: ADD DIFF? YES; ADD MORPH? NO; ADD SCAN? NO; ATYPICAL LYMPHOCYTE FLAG 0 (0-99); FRAGMENT RBC FLAG 0 (0-99); HEMATOCRIT 34.9 % (40.0-51.0); HEMOGLOBIN 12.1 g/dL (13.7-17.5); LEFT SHIFT FLG 80 (0-99); LIPEMIA HEMOLYSIS FLAG 90 (0-99); MEAN CELL HEMOGLOBIN 33.4 pg (27.9-34.1); MEAN CELL HEMOGLOBIN CONCENTR. 34.7 g/dL (32.4-36.7); MEAN CELL VOLUME 96.4 fL (81.5-99.8); MEAN PLATELET VOLUME 9.3 fL (8.7-11.7); PLATELET CLUMPS FLAG 0 (0-99); PLATELET COUNT 124 10^3/uL (150-400); RED BLOOD CELL COUNT 3.62 10^6/uL (4.40-6.38); RED CELL DISTRIBUTION WIDTH 13.4 % (11.5-15.2)
[2017-04-03 05:35] LABS: ANION GAP 6 mEq/L (8-16); CALCIUM 8.4 mg/dL (8.5-10.4); CARBON DIOXIDE 22 mEq/l (22-31); CHLORIDE 109 mEq/L (97-110); CREATININE 1.1 mg/dL (0.7-1.3); GLOMERULAR FILTRATION RATE > 60; GLUCOSE 106 mg/dL (70-100); POTASSIUM 4.1 mEq/L (3.5-5.2); SODIUM 137 mEq/L (134-144)
[2017-04-03] MEDS: ceFAZolin 2 GM/DEXTROSE 100 ML IV SCH ×3 (06:24→21:28)
[2017-04-03 07:27] LABS: PLATELET ESTIMATE DECREASED (ADEQ); TOXIC GRANULATION PRESENT
[2017-04-03] MEDS ORDERED: Herbals/Supplements -Info Only PO SCH (09:00)
[2017-04-03] MEDS: METOPROLOL TARTRATE 50 MG TAB PO SCH ×2 (10:00→21:24)
[2017-04-03] MEDS: CHOLECALCIFEROL VIT D3 2,000 UNITS TAB/CAP PO SCH (10:00)
[2017-04-03] MEDS: ASPIRIN 325 MG TAB PO SCH (10:01)
[2017-04-03] MEDS: CLOPIDOGREL BISULFATE 75 MG TAB PO SCH (10:01)
[2017-04-03] MEDS: MULTIVITAMINS 1 EACH TAB PO SCH (10:01)
[2017-04-03] MEDS: ENOXAPARIN 40 MG/0.4 ML SYR SC SCH (10:02)
[2017-04-03] MEDS: EZETIMIBE 10 MG TAB PO SCH (10:02)
[2017-04-03] MEDS: PATCH REMOVAL 1 EA PATCH TD SCH (10:07)
[2017-04-03] MEDS ORDERED: PNEUMOC 13-VAL CONJ-DIP CRM/PF 0.5 ML SYR IM ONE (14:39)
--- NOTE | 2017-04-03 16:57 | ASMTCMCOM ---
CM Note CM Note Notes: Pt admitted with AMS and cellulitis. ID consult pending. C/M will continue to follow for DC needs. Date Signed: 04/03/2017 04:57 PM Electronically Signed By:Roma Mendoza LCSW
--- NOTE | 2017-04-03 17:27 | HOSPPROG ---
Hospitalist Progress Note Assessment/Plan: * Acute LLE cellulitis -lower leg looks good -still with severe erythema/pain in inguinal region -continue IV ancef -ID to consult * Metabolic encephalopathy -improved * Possible shingles -s/p valtrex x 1 -defer to ID whether to continue * CAD/stent -ASA/Plavix/metoprolol Subjective: better Objective: Vital Signs Temp Pulse Resp BP Pulse Ox 36.7 C 58 L 16 120/66 96 04/03/17 16:22 04/03/17 16:22 04/03/17 16:22 04/03/17 16:22 04/03/17 16:22 04/02/17 04/03/17 04/04/17 05:59 05:59 05:59 Intake Total 420 Balance 420 - Physical Exam Constitutional: no apparent distress, appears nourished, not in pain Cardiovascular: regular rate and rhythym, no murmur, rub, or gallop Respiratory: no respiratory distress, no rales or rhonchi, clear to auscultation Gastrointestinal: normoactive bowel sounds, soft, non-tender abdomen, no palpable masses Skin: warm, erythema, induration, No no fluctuance Neurologic: AAOx3, sensation intact bilaterally Psychiatric: interacting appropriately, not anxious, not encephalopathic, thought process linear ICD10 Worksheet Patient Problems: Problems Problem Status Onset Left leg cellulitis Acute Leukocytosis Acute Crescendo angina Acute
--- NOTE | 2017-04-03 21:26 | GCON ---
[f rep st] CONSULTATION INPATIENT INFECTIOUS DISEASE CONSULTATION. DATE OF CONSULTATION: 04/03/2017 REFERRING PHYSICIAN: Viral Maharaj MD REASON FOR REFERRAL: Encephalopathy, probable sepsis. HISTORY OF PRESENT ILLNESS: Patient is a 71-year-old male, who was brought into [facility] through the emergency room on 04/02/2017. It was noted at that point that the patient complai mely of bilateral flank pain and difficulty urinating. His had also noted that he was having inc reased difficulty to walk and was notably more confused and disoriented. While in the emergency room , laboratory tests revealed a significant leukocytosis to 22,000; this was left-shifted. Serum chemi stries were fairly normal apart from a mild elevation of creatinine to 1.3. He had a rash on his lef t lower extremity that showed some concern for shingles and, therefore, was given a dose of valacyclo vir in the emergency room. The patient was admitted and started empirically on cefazolin 2 g q.8. H e states today that he feels much better. Today on evaluation he is awake, alert and conversational. The other than occasional back and flank pain, he denies any other complaint. PAST MEDICAL HISTORY: 1. Coronary artery disease. 2. Diabetes. 3. Chronic obstructive pulmonary disease. PAST SURGICAL HISTORY: 1. Status post coronary stenting. 2. Status post orthopedic surgeries. ANTIBIOTICS: Cefazolin. ALLERGIES: The patient has no known drug allergies. SOCIAL HISTORY: Patient is . No significant tobacco, alcohol or drug use noted currently. FAMILY HISTORY: Reviewed, but noncontributory. REVIEW OF SYSTEMS: Other than that detailed above in his present illness, a comprehensive 10-system review is negative. PHYSICAL EXAMINATION: VITAL SIGNS: Temperature maximum is 37.7, temperature current is 36.7, heart rate is 58, respiratory rate is 16, blood pressure is 120/66. GENERAL: The patient is a well-formed , well-nourished, elderly male in no acute distress. He is not toxic in appearance. He is alert and oriented x3. He has a pleasant demeanor. HEENT: Normocephalic for age. Atraumatic. No scleral i cterus. No oral lesion. No drainage from the nares. Eyes: Lids and conjunctivae are within normal limits. Pupils are equal and round bilaterally. NECK: Supple. No meningismus. LUNGS: Clear to auscultation bilaterally with good effort. HEART: Regular rate and rhythm. No murmur, rub, or gall op noted. No significant peripheral edema. ABDOMEN: Soft, nontender. No masses. SKIN: Warm and dry to the touch. The patient does have a mild erythematous rash on the anterior left lower pérez. I t is not blanchable and not especially warm to touch. The patient also has some mild erythema in a b andlike form coming up the medial side of his leg up into the inguinal region. It is warm near the i nguinal region but no other areas. MUSCULOSKELETAL: No muscle tenderness is noted. No joint line e ffusion or arthritis seen. NEURO: Cranial nerves 2-12 seem to be intact. Peripheral sensation seem s intact in extremities. LABORATORY DATA: The patient has a CBC dated 04/03/2017 that shows a white blood cell count of 20.1, hemoglobin of 12.1, hematocrit of 34.9, and platelet count 124; differential is left-shifted with 68 % segmented neutrophils, 24% band forms. Serum chemistries on 04/03/2017 show sodium of 137, potassi um 4.1, chloride of 109, bicarbonate of 22, BUN of 21, and creatinine 1.1. Urinalysis on 04/02/2017 is generally normal. MICROBIOLOGIC DATA: Patient had blood cultures dated 04/02/2017 which are pending. ASSESSMENT: Left lower extremity cellulitis with ascending lymphangitis along the inguinal chain. I suspect this is probably streptococcal given appearance. Agree with cefazolin monotherapy coverage. Blood cultures may become positive given this lymphangitis presentation; however, I think he has ma de great clinical improvement even in the first 24 hours. We will continue to monitor. If he remain s stable over the next 24 to 36 hours, we could change him to oral antibiotics for discharge as long as the blood cultures do not show positivity. PLAN: 1. Continue IV cefazolin at current dose. 2. Follow appearance of left lower extremity. 3. Follow blood culture results. 4. /[id number]/MODL
[2017-04-03] MEDS: LIDOCAINE 5% 1 EA PATCH TD SCH (21:45)
[2017-04-04] MEDS: ceFAZolin 2 GM/DEXTROSE 100 ML IV SCH ×3 (05:50→22:25)
[2017-04-04 05:53] LABS: ABSOLUTE IMMATURE GRANULOCYTES 0.12 10^3/uL (0.00-0.10); ADD DIFF? NO; ADD MORPH? NO; ADD SCAN? NO; ATYPICAL LYMPHOCYTE FLAG 0 (0-99); FRAGMENT RBC FLAG 0 (0-99); HEMATOCRIT 35.6 % (40.0-51.0); HEMOGLOBIN 12.3 g/dL (13.7-17.5); LEFT SHIFT FLG 40 (0-99); LIPEMIA HEMOLYSIS FLAG 90 (0-99); MEAN CELL HEMOGLOBIN 33.1 pg (27.9-34.1); MEAN CELL HEMOGLOBIN CONCENTR. 34.6 g/dL (32.4-36.7); MEAN CELL VOLUME 95.7 fL (81.5-99.8); MEAN PLATELET VOLUME 9.9 fL (8.7-11.7); PLATELET CLUMPS FLAG 0 (0-99); PLATELET COUNT 116 10^3/uL (150-400); RED BLOOD CELL COUNT 3.72 10^6/uL (4.40-6.38); RED CELL DISTRIBUTION WIDTH 13.2 % (11.5-15.2)
[2017-04-04 06:08] LABS: ANION GAP 11 mEq/L (8-16); CALCIUM 8.3 mg/dL (8.5-10.4); CARBON DIOXIDE 20 mEq/l (22-31); CHLORIDE 111 mEq/L (97-110); CREATININE 0.8 mg/dL (0.7-1.3); GLOMERULAR FILTRATION RATE > 60; GLUCOSE 105 mg/dL (70-100); POTASSIUM 3.8 mEq/L (3.5-5.2); SODIUM 142 mEq/L (134-144)
[2017-04-04] MEDS: ASPIRIN 325 MG TAB PO SCH (08:45)
[2017-04-04] MEDS: MULTIVITAMINS 1 EACH TAB PO SCH (08:46)
[2017-04-04] MEDS: CHOLECALCIFEROL VIT D3 2,000 UNITS TAB/CAP PO SCH (08:46)
[2017-04-04] MEDS: CLOPIDOGREL BISULFATE 75 MG TAB PO SCH (08:46)
[2017-04-04] MEDS: METOPROLOL TARTRATE 50 MG TAB PO SCH ×2 (08:46→20:31)
[2017-04-04] MEDS: ENALAPRIL MALEATE 20 MG TAB PO SCH (08:47)
[2017-04-04] MEDS: EZETIMIBE 10 MG TAB PO SCH (08:47)
[2017-04-04] MEDS: ENOXAPARIN 40 MG/0.4 ML SYR SC SCH (08:51)
[2017-04-04] MEDS: PATCH REMOVAL 1 EA PATCH TD SCH (10:34)
--- NOTE | 2017-04-04 11:17 | ASMTCMCOM ---
CM Note CM Note Notes: Pt currently on IV ABX for LLE cellulitis. Pt will likely switch to oral ABX prior to DC but cultures still pending. C/M available if DC needs change. Date Signed: 04/04/2017 11:16 AM Electronically Signed By:Roma Mendoza LCSW
--- NOTE | 2017-04-04 11:34 | HOSPPROG ---
Hospitalist Progress Note Assessment/Plan: First encounter with this patient: * Acute LLE cellulitis with ascending lymphangitis. Clinically appears improving on IV Ancef -Still with erythema/pain in inguinal region -continue IV ancef -ID following. Will see again tomorrow -will await Blood cultures * Metabolic encephalopathy -resolved * Possible shingles -s/p valtrex x 1 -no need for Valtrex * CAD/stent -ASA/Plavix/metoprolol Plan: Per above. Overall appears improving. The pt's is very upset as she feels that she has not received a good update. She plans on speaking to the patient advocate committee. We went over the patients care and diagnosis in details and she seems happy with the explanation. Dispo: if clinically stable and no growth on cultures and continues to improve, possibly discharge tomorrow Subjective: Feels better. Seen walking in halls. Pain is well controlled. No fever. still with some weakness. Objective: Vital Signs Temp Pulse Resp BP Pulse Ox 36.8 C 62 17 122/69 H 93 04/04/17 07:22 04/04/17 07:22 04/04/17 07:22 04/04/17 07:22 04/04/17 07:22 Laboratory Results 04/04/17 05:30 04/04/17 05:30 04/03/17 04/04/17 04/05/17 05:59 05:59 05:59 Intake Total 520 260 Balance 520 260 - Physical Exam Constitutional: no apparent distress, appears nourished, not in pain Eyes: PERRL, anicteric sclera, EOMI Ears, Nose, Mouth, Throat: moist mucous membranes, hearing normal, ears appear normal, no oral mucosal ulcers Cardiovascular: regular rate and rhythym, No JVD, No edema Respiratory: no respiratory distress, no rales or rhonchi Gastrointestinal: normoactive bowel sounds, soft, non-tender abdomen Skin: warm, erythema, rash Musculoskeletal: generalized weakness Neurologic: AAOx3 Psychiatric: interacting appropriately, not anxious, not encephalopathic ICD10 Worksheet Patient Problems: Problems Problem Status Onset Left leg cellulitis Acute Leukocytosis Acute Crescendo angina Acute
[2017-04-04] MEDS ORDERED: BISACODYL 10 MG SUPP PR PRN (18:02)
[2017-04-04] MEDS ORDERED: LACTULOSE 20 GM/30 ML UDCUP PO PRN (18:02)
[2017-04-04] MEDS ORDERED: MAGNESIUM HYDROXIDE 30 ML UDCUP PO PRN (18:02)
[2017-04-04] MEDS ORDERED: POLYETHYLENE GLYCOL 3350 17 GM PKT PO PRN (18:02)
--- NOTE | 2017-04-04 18:50 | PCMIDPN ---
Assessment/Plan: Assessment/Plan: * Left lower extremity cellulitis with associated lymphangitis: Clinically improving with cefazolin. Appearance most compatible with beta-hemolytic streptococcal disease. MSSA also consideration with MRSA less likely given lack of purulent findings. Confusion is improving although patient has not returned to baseline with most likely etiology being delirium due to acute infectious process superimposed upon underlying cognitive dysfunction. Continues to require IV antibiotic therapy which may be required for the next several days as still has significant cellulitic component present. 04/04/17 18:47 Subjective: Patient with less pain in left lower extremity. Some confusion persists although significantly improved. Objective: Vital Signs Temp Pulse Resp BP Pulse Ox 36.7 C 56 L 16 110/57 L 96 04/04/17 16:01 04/04/17 16:01 04/04/17 16:01 04/04/17 16:01 04/04/17 16:01 Laboratory Results 04/04/17 05:30 04/04/17 05:30 04/03/17 04/04/17 04/05/17 05:59 05:59 05:59 Intake Total 520 1110 Balance 520 1110 Cefazolin # 2 Blood cultures x2 no growth - Physical Exam General Appearance: alert, no apparent distress, non-toxic Extremities: inflammation (Left lower extremity with patchy erythema over anterior pérez and confluent faint erythema over medial thigh) Abdomen: non-tender, No distended Lymphatic: adenopathy (Tender lymphadenopathy in left femoral region) ICD10 Worksheet Patient Problems: Problems Problem Status Onset Left leg cellulitis Acute Leukocytosis Acute Crescendo angina Acute
[2017-04-04] MEDS: LIDOCAINE 5% 1 EA PATCH TD SCH (20:21)
[2017-04-04] MEDS: SENNOSIDES/DOCUSATE SODIUM TAB PO SCH (20:32)
[2017-04-05] MEDS: ceFAZolin 2 GM/DEXTROSE 100 ML IV SCH ×3 (05:46→22:54)
[2017-04-05 06:46] LABS: % IMMATURE GRANULYOCYTES 0.7 % (0.0-1.1); ABSOLUTE IMMATURE GRANULOCYTES 0.05 10^3/uL (0.00-0.10); ADD DIFF? NO; ADD MORPH? NO; ADD SCAN? NO; ATYPICAL LYMPHOCYTE FLAG 40 (0-99); FRAGMENT RBC FLAG 0 (0-99); HEMATOCRIT 35.9 % (40.0-51.0); HEMOGLOBIN 12.4 g/dL (13.7-17.5); LEFT SHIFT FLG 20 (0-99); LIPEMIA HEMOLYSIS FLAG 90 (0-99); MEAN CELL HEMOGLOBIN 33.2 pg (27.9-34.1); MEAN CELL HEMOGLOBIN CONCENTR. 34.5 g/dL (32.4-36.7); MEAN CELL VOLUME 96.2 fL (81.5-99.8); MEAN PLATELET VOLUME 9.3 fL (8.7-11.7); PLATELET CLUMPS FLAG 10 (0-99); PLATELET COUNT 114 10^3/uL (150-400); RED BLOOD CELL COUNT 3.73 10^6/uL (4.40-6.38); RED CELL DISTRIBUTION WIDTH 13.2 % (11.5-15.2)
[2017-04-05] MEDS: SENNOSIDES/DOCUSATE SODIUM TAB PO SCH ×2 (09:00→20:37)
--- NOTE | 2017-04-05 09:37 | PCMIDPN ---
Assessment/Plan: 1. Left lower extremity cellulitis with lymphangitic streaking: Agree that group a strep most likely pathogen. Talked to patient at length about the importance of at least another day of intravenous therapy. Suspect he can go home tomorrow on oral therapy if he continues to improve. The patient has not been keeping his leg elevated, and counseled him to do so and wrote nursing order. Overall, cellulitis much improved per the patient. 2. Tinea pedis between web spaces of toes 4th and 5th digits left foot: Start Lotrimin twice daily. Probable portal of entry. Subjective: When I walked in the room, the patient was dressed and ready to be discharged. He told me "I was told by the doctor yesterday that I could go home today." The patient graciously agreed to undress, and get back in his bed so I could examine him. He was alert and oriented x3, not confused at all. Complained of some constipation, no diarrhea. Has not been keeping his leg elevated at all. Objective: Ancef 2 g IV q.8 hours day 3 Afebrile Vital Signs Temp Pulse Resp BP Pulse Ox 36.8 C 63 18 138/68 H 94 04/05/17 07:53 04/05/17 07:53 04/05/17 07:53 04/05/17 07:53 04/05/17 07:53 Laboratory Results 04/05/17 06:27 04/04/17 05:30 04/04/17 04/05/17 04/06/17 05:59 05:59 05:59 Intake Total 520 1540 Balance 520 1540 Blood cultures negative - Physical Exam General Appearance: alert, no apparent distress Respiratory: lungs clear Extremities: other (Left lower extremity with minimal edema compared to the right. Bilateral knee arthroplasty scars that are well healed. I could not appreciate any tenderness in his inguinal nodes today. Left lower extremity notable for some brick red erythematous macules/patches on the pretibial area. Posterior early, his calf is notable for confluent blanching erythema that is pink in nature, and much better per the patient. I can also appreciate some very faint lymphangitis streaking in the left lower extremity and posterior thigh. No bullae. The foot itself looks fine. There is some tinea pedis between the web spaces of the 4th and 5th toes.) ICD10 Worksheet Patient Problems: Problems Problem Status Onset Left leg cellulitis Acute Leukocytosis Acute Crescendo angina Acute
[2017-04-05] MEDS: ASPIRIN 325 MG TAB PO SCH (09:51)
[2017-04-05] MEDS: CHOLECALCIFEROL VIT D3 2,000 UNITS TAB/CAP PO SCH (09:51)
[2017-04-05] MEDS: CLOPIDOGREL BISULFATE 75 MG TAB PO SCH (09:52)
[2017-04-05] MEDS: ENALAPRIL MALEATE 20 MG TAB PO SCH (09:53)
[2017-04-05] MEDS: CLOTRIMAZOLE 1% 15 GM CRTUBE TP SCH ×2 (09:53→22:54)
[2017-04-05] MEDS: METOPROLOL TARTRATE 50 MG TAB PO SCH ×2 (09:54→20:39)
[2017-04-05] MEDS: EZETIMIBE 10 MG TAB PO SCH (09:54)
[2017-04-05] MEDS: ENOXAPARIN 40 MG/0.4 ML SYR SC SCH (09:54)
[2017-04-05] MEDS: MULTIVITAMINS 1 EACH TAB PO SCH (09:55)
[2017-04-05] MEDS: PATCH REMOVAL 1 EA PATCH TD SCH (09:56)
--- NOTE | 2017-04-05 11:15 | ASMTCMCOM ---
CM Note CM Note Notes: Chart reviewed. Per ID patient to remain hopsitalized over weekend on IV ANTB then dc to home on Saturday with oral ANTB. CM to follow should needs arise. Date Signed: 04/05/2017 11:15 AM Electronically Signed By:Ambar Parisi RN
--- NOTE | 2017-04-05 16:28 | HOSPPROG ---
Hospitalist Progress Note Assessment/Plan: * Acute LLE cellulitis with ascending lymphangitis. Clinically appears improving on IV Ancef -Still with erythema/pain in inguinal region -continue IV ancef -ID following. Will keep through the weekend, then consider changing to oral abx -will await Blood cultures * Metabolic encephalopathy -resolved * Possible shingles -s/p valtrex x 1 -no need for Valtrex * CAD/stent -ASA/Plavix/metoprolol Subjective: feels better, ID saw him today and will keep on IV abx through the weekend. Objective: Vital Signs Temp Pulse Resp BP Pulse Ox 36.8 C 69 18 138/68 H 95 04/05/17 07:53 04/05/17 15:07 04/05/17 07:53 04/05/17 09:54 04/05/17 15:07 Laboratory Results 04/05/17 06:27 04/04/17 05:30 04/04/17 04/05/17 04/06/17 05:59 05:59 05:59 Intake Total 520 1540 Balance 520 1540 - Physical Exam Constitutional: no apparent distress, appears nourished Eyes: PERRL, EOMI Ears, Nose, Mouth, Throat: moist mucous membranes, No dry mucous membranes Cardiovascular: regular rate and rhythym, No JVD Respiratory: no respiratory distress, clear to auscultation Gastrointestinal: soft, non-tender abdomen Skin: warm, erythema Neurologic: AAOx3 Psychiatric: interacting appropriately, not anxious, not encephalopathic ICD10 Worksheet Patient Problems: Problems Problem Status Onset Left leg cellulitis Acute Leukocytosis Acute Crescendo angina Acute
[2017-04-05] MEDS: LIDOCAINE 5% 1 EA PATCH TD SCH (20:46)
[2017-04-06] MEDS: ceFAZolin 2 GM/DEXTROSE 100 ML IV SCH ×3 (06:28→21:59)
[2017-04-06] MEDS: SENNOSIDES/DOCUSATE SODIUM TAB PO SCH ×2 (08:49→21:59)
[2017-04-06] MEDS: CHOLECALCIFEROL VIT D3 2,000 UNITS TAB/CAP PO SCH (08:49)
[2017-04-06] MEDS: MULTIVITAMINS 1 EACH TAB PO SCH (08:50)
[2017-04-06] MEDS: ENALAPRIL MALEATE 20 MG TAB PO SCH (08:50)
[2017-04-06] MEDS: EZETIMIBE 10 MG TAB PO SCH (08:50)
[2017-04-06] MEDS: CLOPIDOGREL BISULFATE 75 MG TAB PO SCH (08:50)
[2017-04-06] MEDS: ASPIRIN 325 MG TAB PO SCH (08:51)
[2017-04-06] MEDS: METOPROLOL TARTRATE 50 MG TAB PO SCH ×2 (08:51→21:59)
[2017-04-06] MEDS: PATCH REMOVAL 1 EA PATCH TD SCH (08:52)
[2017-04-06] MEDS: ENOXAPARIN 40 MG/0.4 ML SYR SC SCH (08:55)
--- NOTE | 2017-04-06 10:16 | PCMIDPN ---
Assessment/Plan: Assessment: Left lower extremity cellulitis with ascending lymphangitis. No positive cultures. Will continue with IV cefazolin. Plan is to continue IV medications and discharged on Saturday with oral analogs. Plan: 1. Continue IV cefazolin at current dose. 2. Follow clinical improvement. 04/06/17 10:14 Subjective: Patient is resting in his hospital bed. He has no new complaints. He states that the swelling and redness in his left lower extremity has significantly improved. Decrease tenderness. He is able to ambulate better. Objective: Cefazolin # 4 Vital Signs Temp Pulse Resp BP Pulse Ox 37 C 53 L 16 160/76 H 93 04/06/17 07:16 04/06/17 08:51 04/06/17 07:16 04/06/17 08:51 04/06/17 07:16 Laboratory Results 04/05/17 06:27 04/04/17 05:30 04/05/17 04/06/17 04/07/17 05:59 05:59 05:59 Intake Total 1540 400 Output Total 1 Balance 1540 399 - Physical Exam General Appearance: WD/WN, alert, no apparent distress Respiratory: lungs clear, normal breath sounds, No respiratory distress Cardiac/Chest: regular rate, rhythm, No tachycardia Extremities: non-tender, erythema (Mild left lower extremity midshin distal), No normal inspection, No pedal edema Skin: normal color, warm/dry, No rash Neuro/Psych: alert, normal mood/affect, oriented x 3 ICD10 Worksheet Patient Problems: Problems Problem Status Onset Left leg cellulitis Acute Leukocytosis Acute Crescendo angina Acute
[2017-04-06] MEDS: CLOTRIMAZOLE 1% 15 GM CRTUBE TP SCH ×2 (14:06→22:00)
--- NOTE | 2017-04-06 20:36 | HOSPPROG ---
Hospitalist Progress Note Assessment/Plan: The patient is a 71-year-old male with PMH dementia, CAD, hypertension, hyperlipidemia who was admitted for acute encephalopathy, left lower extremity cellulitis and lymphangitis, acute kidney injury. ASSESSMENT/PLAN: Acute encephalopathy, resolved Left lower extremity cellulitis lymphangitis-improving Dementia Acute kidney injury, resolved Hypertension Dyslipidemia Coronary artery disease -ID on case - recs appreciated. -IV cefazolin. Switch to po and plan for DC on Saturday. -Home meds. VTE prophylaxis: Lovenox Code Status: Full code Status: And patient for greater than 2 midnight stay. Disposition: Med surge with discharge anticipated Saturday ____ SUBJECTIVE: Today patient feels well. He has been ambulating. He has been eating. OBJECTIVE: Physical Exam: General: The patient is an elderly male who is alert and in no acute distress. HEENT: normocephalic, extraocular movements intact, conjunctivae clear. Mucous membranes moist. Neck: trachea midline, no visible masses. CV: +S1/S2, RRR, no MRG. Resp: unlabored, CTAB no RRW. Abd: soft and nondistended. Musculoskeletal: Normal muscle tone/bulk. Neuro: cranial nerves II XII grossly intact. Intact gross motor and sensory function. Psych: Appropriate mood and appropriate affect. Skin: Pallor pallor. + red rash left lower leg. Heme/lymph: +1 peripheral edema at left lower leg. Labs/Imaging/Other Tests: Personally reviewed/interpreted. This patient is new to me. Reviewed patient's chart/records for this visit. Objective: Vital Signs Temp Pulse Resp BP Pulse Ox 36.8 C 56 L 18 152/71 H 97 04/06/17 20:17 04/06/17 20:17 04/06/17 20:17 04/06/17 20:17 04/06/17 20:17 Laboratory Results 04/05/17 06:27 04/04/17 05:30 04/05/17 04/06/17 04/07/17 05:59 05:59 05:59 Intake Total 1540 400 100 Output Total 1 Balance 1540 399 100 - Time Spent With Patient Time Spent with Patient: greater than 35 minutes Time Spent with Patient: Greater than 35 minutes spent on this patients care, greater than 50% of time spent counseling, educating, and coordinating care regarding the above mentioned plan. - Pending Discharge Pending Discharge Within 48 Hours: Yes Pending Discharge Date: 04/08/17 Pending Discharge Time: 11:00 ICD10 Worksheet Patient Problems: Problems Problem Status Onset Left leg cellulitis Acute Leukocytosis Acute Crescendo angina Acute
[2017-04-06] MEDS: LIDOCAINE 5% 1 EA PATCH TD SCH (22:00)
[2017-04-07 04:40] LABS: HEMATOCRIT 37.2 % (40.0-51.0); HEMOGLOBIN 12.9 g/dL (13.7-17.5); MEAN CELL HEMOGLOBIN 33.1 pg (27.9-34.1); MEAN CELL HEMOGLOBIN CONCENTR. 34.7 g/dL (32.4-36.7); MEAN CELL VOLUME 95.4 fL (81.5-99.8); RED BLOOD CELL COUNT 3.9 10^6/uL (4.40-6.38); RED CELL DISTRIBUTION WIDTH 12.7 % (11.5-15.2)
[2017-04-07] MEDS: ceFAZolin 2 GM/DEXTROSE 100 ML IV SCH ×3 (06:28→21:45)
[2017-04-07] MEDS: ENALAPRIL MALEATE 20 MG TAB PO SCH (08:47)
[2017-04-07] MEDS: CHOLECALCIFEROL VIT D3 2,000 UNITS TAB/CAP PO SCH (08:47)
[2017-04-07] MEDS: SENNOSIDES/DOCUSATE SODIUM TAB PO SCH ×2 (08:48→21:45)
[2017-04-07] MEDS: CLOPIDOGREL BISULFATE 75 MG TAB PO SCH (08:48)
[2017-04-07] MEDS: MULTIVITAMINS 1 EACH TAB PO SCH (08:48)
[2017-04-07] MEDS: EZETIMIBE 10 MG TAB PO SCH (08:48)
[2017-04-07] MEDS: ASPIRIN 325 MG TAB PO SCH (08:48)
[2017-04-07] MEDS: METOPROLOL TARTRATE 50 MG TAB PO SCH ×2 (08:48→21:45)
[2017-04-07] MEDS: CLOTRIMAZOLE 1% 15 GM CRTUBE TP SCH ×2 (08:49→21:48)
[2017-04-07] MEDS: ENOXAPARIN 40 MG/0.4 ML SYR SC SCH (09:02)
[2017-04-07] MEDS: PATCH REMOVAL 1 EA PATCH TD SCH (10:04)
--- NOTE | 2017-04-07 17:04 | PCMIDPN ---
Assessment/Plan: Assessment: Left lower extremity cellulitis with ascending lymphangitis. No positive cultures. Will continue with IV cefazolin. Plan is to continue IV medications and discharged on Saturday with oral analogs. Clinical changes in the left lower extremity at the primary set of soft tissue infection is expected and interpreted as improvement. Plan: 1. Continue IV cefazolin at current dose. 2. Follow clinical improvement. 04/06/17 10:14 04/07/17 17:01 Subjective: Patient is resting in his chair in his hospital room. He denies any new complaint. States that his left foot is getting smaller. No fevers or chills. Objective: Cefazolin # 5 Vital Signs Temp Pulse Resp BP Pulse Ox 36.9 C 57 L 18 143/78 H 97 04/07/17 15:57 04/07/17 15:57 04/07/17 15:57 04/07/17 15:57 04/07/17 15:57 Laboratory Results 04/07/17 04:16 04/04/17 05:30 04/06/17 04/07/17 04/08/17 05:59 05:59 05:59 Intake Total 400 100 600 Output Total 1 1 Balance 399 99 600 - Physical Exam General Appearance: WD/WN, alert, no apparent distress, non-toxic Respiratory: lungs clear, normal breath sounds, No respiratory distress Cardiac/Chest: regular rate, rhythm, No tachycardia Extremities: non-tender, inflammation (Mild left foot), swelling (Mild left foot ), No normal inspection Skin: normal color, warm/dry, No rash Neuro/Psych: alert, normal mood/affect, oriented x 3 ICD10 Worksheet Patient Problems: Problems Problem Status Onset Left leg cellulitis Acute Leukocytosis Acute Crescendo angina Acute
[2017-04-07] MEDS: LIDOCAINE 5% 1 EA PATCH TD SCH (19:31)
--- NOTE | 2017-04-07 20:31 | HOSPPROG ---
Hospitalist Progress Note Assessment/Plan: The patient is a 71-year-old male with PMH dementia, CAD, hypertension, hyperlipidemia who was admitted for acute encephalopathy, left lower extremity cellulitis and lymphangitis, acute kidney injury. ASSESSMENT/PLAN: Acute encephalopathy, resolved Dementia -still has dementia which seems to be baseline. -Recommend that patient stop driving as his cognitive status and memory are impaired. Left lower extremity cellulitis lymphangitis-improving -ID on case - recs appreciated. -IV cefazolin. Switch to po and plan for DC on Saturday. Acute kidney injury, resolved Hypertension Dyslipidemia Coronary artery disease -Home meds. VTE prophylaxis: Lovenox Code Status: Full code Status: Inpatient for greater than 2 midnight stay. Disposition: Med surge with discharge anticipated Saturday ____ SUBJECTIVE: Today patient feels well. He has been ambulating. He has been eating. OBJECTIVE: Physical Exam: General: The patient is an elderly male who is alert and in no acute distress. HEENT: normocephalic, extraocular movements intact, conjunctivae clear. Mucous membranes moist. Neck: trachea midline. Abd: soft and nondistended. Musculoskeletal: Normal muscle tone/bulk. Neuro: cranial nerves II XII grossly intact. Intact gross motor and sensory function. Psych: Appropriate mood and appropriate affect. Skin: Pallor pallor. + red rash left lower leg. Heme/lymph: +1 peripheral edema at left lower leg. Labs/Imaging/Other Tests: Personally reviewed/interpreted. This patient is new to me. Reviewed patient's chart/records for this visit. Objective: Vital Signs Temp Pulse Resp BP Pulse Ox 36.3 C 60 15 148/79 H 95 04/07/17 19:54 04/07/17 19:54 04/07/17 19:54 04/07/17 19:54 04/07/17 19:54 Laboratory Results 04/07/17 04:16 04/04/17 05:30 04/06/17 04/07/17 04/08/17 05:59 05:59 05:59 Intake Total 312 146 8112 Output Total 1 1 Balance 338 85 6140 ICD10 Worksheet Patient Problems: Problems Problem Status Onset Left leg cellulitis Acute Leukocytosis Acute Crescendo angina Acute
[2017-04-08 04:02] VITALS: PULSE 52
[2017-04-08] MEDS: ceFAZolin 2 GM/DEXTROSE 100 ML IV SCH (06:04)
[2017-04-08 07:41] VITALS: BP 164/83; RESP 17; TEMP 98.4; O2SAT 94
[2017-04-08] MEDS: MULTIVITAMINS 1 EACH TAB PO SCH (07:53)
[2017-04-08] MEDS: SENNOSIDES/DOCUSATE SODIUM TAB PO SCH (07:53)
[2017-04-08] MEDS: CHOLECALCIFEROL VIT D3 2,000 UNITS TAB/CAP PO SCH (07:53)
[2017-04-08] MEDS: EZETIMIBE 10 MG TAB PO SCH (07:53)
[2017-04-08] MEDS: ASPIRIN 325 MG TAB PO SCH (07:53)
[2017-04-08] MEDS: METOPROLOL TARTRATE 50 MG TAB PO SCH (07:53)
[2017-04-08] MEDS: ENALAPRIL MALEATE 20 MG TAB PO SCH (07:54)
[2017-04-08] MEDS: CLOTRIMAZOLE 1% 15 GM CRTUBE TP SCH (07:54)
[2017-04-08] MEDS: ENOXAPARIN 40 MG/0.4 ML SYR SC SCH (07:54)
[2017-04-08] MEDS: CLOPIDOGREL BISULFATE 75 MG TAB PO SCH (07:54)
[2017-04-08] MEDS: PATCH REMOVAL 1 EA PATCH TD SCH (07:59)
--- NOTE | 2017-04-08 09:05 | PDDCSUM ---
Discharge Summary Discharge Summary: DISCHARGE DIAGNOSES: 1- Acute Encephalopathy 2- Cellulitis of L leg 3- L leg edema 4- COMPLICATIONS: none HOSPITAL COURSE The patient came in with acute confusional state, and was found to have evidence of acute cellulitis of L leg with no abscess or necrosis, and with no sepsis though there was some acute renal dysfunction. He had mild edema of the leg. He was admitted and treated with hydration, elevation of legs, and antibiotics. There was no growth in cultures. He did improve nicely though very slowly. At this time he still has some mild cellutlits of his ankle but there is no fever, the skin is all viable with no ulcer, and his confusional state is all but completely resolved to his baseline. He will be discharged to home with his . He will have ESTELA stockings and Keflex 500 qid. He will follow up at [facility].Elevation of leg and low salt diet are recommended to him.
--- NOTE | 2017-04-08 09:56 | ASDISCHSUM ---
Discharge Information Plan Status:Home with No Needs Medically Cleared to Leave:04/08/2017 Discharge Date:04/08/2017 CM D/C Disposition:Home, Routine, Self-Care ADT D/C Disposition:Home, Routine, Self-Care Projected Discharge Date:04/08/2017 11:00 AM Transportation at D/C:Family Discharge Delay Reason: Follow-Up Date:04/08/2017 11:00 AM Discharge Slot: Final Diagnosis:Cellulitis of leg Placement Information Patient Contact Information Contact Name:MARISA Relationship: Address:[address] [place] [address] City:[place] Alternate Phone: State/Zip Code:[place] [address] Email: Financial Information Financial Class: Primary Plan Desc:MEDICARE INPATIENT Primary Plan Number:[id number] Secondary Plan Desc:[employer] Secondary Plan Number:[id number] Assessment Information BC CM Progress Note CM Note CM Note Notes: Pt admitted with AMS and cellulitis. ID consult pending. C/M will continue to follow for DC needs. Date Signed: 04/03/2017 04:57 PM Electronically Signed By:Roma Mendoza LCSW [facility] CM Progress Note CM Note CM Note Notes: Pt currently on IV ABX for LLE cellulitis. Pt will likely switch to oral ABX prior to DC but cultures still pending. C/M available if DC needs change. Date Signed: 04/04/2017 11:16 AM Electronically Signed By:Roma Mendoza LCSW [facility] CM Progress Note CM Note CM Note Notes: Chart reviewed. Per ID patient to remain hopsitalized over on IV ANTB then dc to home on Saturday with oral ANTB. CM to follow should needs arise. Date Signed: 04/05/2017 11:15 AM Electronically Signed By:Ambar Parisi RN Intervention Information Intervention Type:*Incorrect Registration Date of Service:04/03/2017 10:04 AM Patient Type:Inpatient Staff Member:ADAM Jackman, Shahida Hours: Discipline: Severity: Comment: Intervention Type:*IM-Signed Date of Service:04/08/2017 09:41 AM Patient Type:Inpatient Staff Member:Cristal Arellano Hours: Discipline: Severity: Comment:
== END 2017-04-08 10:45 | disposition home or self-care (01) | DRG 602 ==
LOC: INTOOBSV 17:25 → F1N 20:06 → OBSVTOIN 04-03 09:34
PROVIDERS: ADMIT Internal Medicine; ATTEND Internal Medicine
DX: L03.116 Cellulitis of left lower limb (principal); G93.40 Encephalopathy, unspecified; F03.90 Unspecified dementia, unspecified severity, without behavioral disturbance, psychotic disturbance, mood disturbance, and anxiety; B35.3 Tinea pedis; I25.10 Atherosclerotic heart disease of native coronary artery without angina pectoris; Z95.5 Presence of coronary angioplasty implant and graft; Z87.891 Personal history of nicotine dependence; Z96.653 Presence of artificial knee joint, bilateral; E11.9 Type 2 diabetes mellitus without complications; J44.9 Chronic obstructive pulmonary disease, unspecified; I10 Essential (primary) hypertension; E78.5 Hyperlipidemia, unspecified
CPT/HCPCS: 92507-GN; 92523-GN; 96365; 97116-GP; 97161-GP; 97166-GO; 97530-GO; 97535-GO; G0009; G0378; G8978-GP-CI; G8979-GP-CH; G8980-GP-CH; G8987-GO-CJ; G8988-GO-CI; G8989-GO-CI; G9168-GN-CL; G9169-GN-CJ; J0690; J1650

== ENCOUNTER 2018-01-21 22:33 | Emergency (ER) | payer OTHER ==
--- NOTE | 2018-01-21 22:56 | EDPHY ---
H & P Stated Complaint: STUNG BY WASP AT NOON LEFT HAND, NOW INCREASED SWELLING AND REDNESS, Time Seen by Provider: 01/21/18 22:52 HPI/ROS: HPI CHIEF COMPLAINT: Wasp sting to left hand. HISTORY OF PRESENT ILLNESS: 72-year-old male, history of coronary disease with stents, presents emergency room with a wasp sting to his left hand. He states he was stung he thinks twice by a wasp around noon. Since then he has had increasing left hand swelling and edema. Minimal pain. He took his 's 4 mg dose of decadron. Patient denies systemic symptoms specifically denies rash , denies chest pain shortness of breath, denies trouble breathing, trouble swallowing. He has localized inflammation left hand. Left hand is edematous. No signs of infection. Past Medical History: Coronary artery disease with stents. Past Surgical History: PTCA Social History: Denies drugs alcohol tobacco. Family History: Noncontributory. ROS REVIEW OF SYSTEMS: A comprehensive 10 point review of systems is otherwise negative aside from elements mentioned in the history of present illness. Exam Constitutional appears well nontoxic no acute distress triage nursing summary reviewed, vital signs reviewed, awake/alert. Eyes normal conjunctivae and sclera, EOMI, PERRLA. HENT normal inspection, atraumatic, moist mucus membranes, no epistaxis, neck supple/ no meningismus, no raccoon eyes. Respiratory clear to auscultation bilaterally, normal breath sounds, no respiratory distress, no wheezing. Cardiovascular rate normal, regular rhythm, no murmur, no edema, distal pulses normal. Gastrointestinal soft, non-tender, no rebound, no guarding, normal bowel sounds, no distension, no pulsatile mass. Genitourinary no CVA tenderness. Musculoskeletal Left Hand: Left hand is edematous. No signs of infection. No significant redness or warmth. It is diffusely edematous. Compartment is soft. Does not track up his arm. Good radial pulse, good cap refill. No retained stingers visualized. no midline vertebral tenderness, full range of motion, no calf swelling, no tenderness of extremities, no meningismus, good pulses, neurovascularly intact. Skin pink, warm, & dry, no rash, skin atraumatic. Neurologic awake, alert and oriented x 3, AAOx3, moves all 4 extremities equally, motor intact, sensory intact, CN II-XII intact, normal cerebellar, normal vision, normal speech. Psychiatric normal mood/affect. Heme/Lymph/Immune no lymphadenopathy. Differential Diagnosis: Includes but is not limited to in a particular order insect envenomation, allergic reaction,, localized inflammation, early infection Medical Decision Making: Plan for this patient recommend he keep his arm elevated, the edema is from the localized inflammation from the insect or wasp sting, recommend keeping extremity elevated, cool compresses to his hand. If the swelling or inflammation gets worse including redness, pain, inflammation he should return to the emergency room he understands. I do not think he would benefit from systemic steroids as this is localized inflammation left hand. Return precautions discussed with patient and at bedside. Source: Patient - Personal History Current Tetanus/Diphtheria Vaccine: Unsure - Medical/Surgical History Hx Asthma: No Hx Chronic Respiratory Disease: No Hx Diabetes: No Hx Cardiac Disease: Yes Hx Renal Disease: No Hx Cirrhosis: No Hx Alcoholism: No Hx HIV/AIDS: No Hx Splenectomy or Spleen Trauma: No Other PMH: Stent, HTN, ortho surgs, bilateral knee replacements, [place]?, SLEEP APNEA - Social History Smoking Status: Former smoker Constitutional: O2 Delivery Mode Room Air Allergies/Adverse Reactions: No Known Allergies Allergy (Verified 01/21/18 22:36) Home Medications: Medication Instructions Recorded Aspirin [Aspirin 325 mg (*)] 325 mg PO DAILY 12/03/16 Cholecalciferol Vit D3 [Vitamin D3 10,000 units PO DAILY 12/03/16 (*)] Clopidogrel Bisulfate [Plavix (*)] 75 mg PO DAILY 12/03/16 Enalapril Maleate [Vasotec 10 MG 20 mg PO DAILY 12/03/16 (*)] Ezetimibe [Zetia 10 MG (*)] 10 mg PO DAILY 12/03/16 Herbals/Supplements -Info Only 1 ea PO DAILY 12/03/16 Metoprolol Tartrate [Lopressor 50 50 mg PO BID 12/03/16 mg (*)] Multivitamins [Multivitamin (*)] 1 each PO DAILY 12/03/16 Lidocaine 5% [Lidoderm 5% Patch] 1 ea TD DAILY21 #15 patch 04/08/17 Patch Removal 1 ea TD DAILY patch 04/08/17 Cephalexin [Keflex] 500 mg PO Q6H #28 cap 01/21/18 Diandra 01/21/18 Turmeric 01/21/18 Departure - Departure Disposition: Home, Routine, Self-Care Clinical Impression: Wasp sting Qualifiers: Encounter type: initial encounter Injury intent: accidental or unintentional Qualified Code(s): T63.461A - Toxic effect of venom of wasps, accidental ( unintentional), initial encounter Condition: Good Instructions: Insect Bite or Sting (ED) Additional Instructions: 1. Please keep the extremity elevated. 2. Cool compresses to your left hand. 3. Benadryl for itching. 4. Return emergency room if the swelling, redness gets worse. 5. Keflex if the redness gets worse. Referrals: Naresh Rainey MD [Primary Care Provider] - As per Instructions Prescriptions: Cephalexin [Keflex] 500 mg PO Q6H #28 cap
== END 2018-01-21 23:02 | disposition home or self-care (01) ==
DX: T63.461A Toxic effect of venom of wasps, accidental (unintentional), initial encounter (principal); I10 Essential (primary) hypertension; Z79.82 Long term (current) use of aspirin; Z87.891 Personal history of nicotine dependence; Z95.5 Presence of coronary angioplasty implant and graft

== ENCOUNTER 2018-02-07 16:52 | Inpatient (IN) | payer OTHER ==
--- NOTE | 2018-02-07 17:19 | CPEKG ---
Heart Rate: 83 RR Interval: 723 P-R Interval: 228 QRSD Interval: 96 QT Interval: 360 QTC Interval: 423 P [place]: 46 QRS [place]: -35 T Wave [place]: 64 EKG Severity - ABNORMAL ECG - EKG Impression: SINUS RHYTHM EKG Impression: FIRST DEGREE AV BLOCK EKG Impression: LEFT AXIS DEVIATION EKG Impression: LEFT VENTRICULAR HYPERTROPHY Electronically Signed By: Manuel Mendenhall 07-Feb-2018 17:27:43
--- NOTE | 2018-02-07 17:31 | EDPHY ---
H & P Time Seen by Provider: 02/07/18 17:15 HPI/ROS: CHIEF COMPLAINT: Spacey and confused HISTORY OF PRESENT ILLNESS: History from the patient's as the patient is confused. She brings him in says he has been"spacey"for the last 2 days. Acting confused and not his normal self. The patient has body aches but denies any other symptoms. He has not traveled out of the country. He denies neck stiffness or cough or vomiting or diarrhea or skin rash. REVIEW OF SYSTEMS: Eye: no change in vision ENT: no sore throat Cardiac: no chest pain or syncope Pulmonary: no cough or SOB Abdomen: no vomiting, diarrhea, abdominal pain Musculoskeletal: no back pain Skin: He had a wasp sting on his hand a week ago that resolved after 3 days. Neuro: no headache Constitutional: no fever : no urinary symptoms A comprehensive 10 point review of systems is otherwise negative aside from elements mentioned in the history of present illness. PAST MEDICAL HISTORY: Includes hypertension, coronary disease, bilateral knee replacements, sleep apnea Social history: Here with his , no alcohol General Appearance: Patient is alert and pleasant and cooperative. Eyes: No scleral icterus. ENT, Mouth: Normal mucous membranes. No pharyngeal erythema or exudate. Respiratory: Normal respiratory effort, breath sounds equal, lungs are clear to auscultation. Cardiovascular: Regular rate and rhythm. No murmur. Gastrointestinal: Abdomen is soft and non tender. Neurological: Alert, face symmetric, normal motor and sensory in extremities. He is confused and when asked how old he is he says "1945" and he knows where he is (in [place]) and knows his 's name. When asked what year it is he says "8" and has some rambling speech. Skin: Warm and dry, no rashes. Specifically no sacral or decubitus ulcer and normal scrotum. No purpura or petechiae. Musculoskeletal: No neck stiffness. Psychiatric: Not agitated. Emergency Department course/MDM: Patient is noted to have a fever with temperature 39 degrees, likely acutely encephalopathic from infection. He does not have meningeal signs. Plan head CT, chest x-ray, urinalysis, labs including lactate. Admission hospitalist service. Carol Ann 1908 admit. Lumbar puncture discussed and consented with the patient and his . Reason is fever and altered mental status. Standard sterile prep was used with 1% lidocaine anesthesia total 2 cc. I was unable to perform the procedure successfully, he tolerated it well. I never got any return of blood or CSF in the needle. Discussed with Dr. Pichardo, will send to Radiology for attempt under fluoroscopy. 2142: 10 WBC,827 RBC, likely not acute infectious encephalitis or meningitis. Stable for transport to the floor. Smoking Status: Former smoker Constitutional: Initial Vital Signs Temperature (C) 39 C H 02/07/18 16:56 Heart Rate 94 02/07/18 16:56 Respiratory Rate 18 02/07/18 16:56 Blood Pressure 121/63 H 02/07/18 16:56 O2 Sat (%) 95 02/07/18 16:56 O2 Delivery Mode Room Air Allergies/Adverse Reactions: No Known Allergies Allergy (Verified 02/07/18 16:55) Home Medications: Medication Instructions Recorded Clopidogrel Bisulfate [Plavix (*)] 75 mg PO DAILY 12/03/16 Enalapril Maleate [Vasotec 10 MG 20 mg PO DAILY 12/03/16 (*)] Ezetimibe [Zetia 10 MG (*)] 10 mg PO DAILY 12/03/16 Herbals/Supplements -Info Only 1 ea PO DAILY 12/03/16 Metoprolol Tartrate [Lopressor 50 50 mg PO BID 12/03/16 mg (*)] Multivitamins [Multivitamin (*)] 1 each PO DAILY 12/03/16 Aspirin EC [Aspirin EC 81 mg (*)] 162 mg PO HS 02/07/18 Medical Decision Making - Diagnostics EKG Interpretation: 12-lead EKG interpreted by me; official reading is in trace master. My interpretation is sinus rhythm with first-degree AV block and LVH. Imaging Results: Imaging Impressions Chest X-Ray 02/07/18 17:24 Impression: 1. No acute cardiopulmonary abnormality. 2. Cardiomegaly with coronary artery disease. 3. Diffuse idiopathic skeletal hyperostosis. Head CT 02/07/18 17:28 Impression: 1. No acute intracranial findings. 2. Diffuse cerebral atrophy with periventricular and subcortical low attenuation consistent with chronic microvascular ischemic gliosis. Findings discussed with jovanny Coles answering for BEAN SEGAL 02/07/2018 at 18:30. Lumbar Puncture 02/07/18 18:41 Impression: Fluoroscopically guided lumbar puncture as above. Imaging: Discussed imaging studies w/ house calls nurse practitioner Radiologist Differential Diagnosis: Differential considered for fever and altered mental status including but not limited to UTI, pneumonia, meningitis or encephalitis - Data Points Laboratory Results: Laboratory Results 02/07/18 17:10 02/07/18 17:10 02/07/18 02/07/18 02/07/18 17:59 17:30 17:10 WBC RBC Hgb Hct MCV MCH MCHC RDW Plt Count MPV Neut % (Auto) Lymph % (Auto) [place] % (Auto) Eos % (Auto) Baso % (Auto) Nucleat RBC Rel Count Absolute Neuts (auto) Absolute Lymphs (auto) Absolute Monos (auto) Absolute Eos (auto) Absolute Basos (auto) Absolute Nucleated RBC Immature Gran % Immature Gran # RBC/WBC/PLT Morphology Platelet Estimate PT INR APTT VBG Lactic Acid 1.1 mmol/L mmol/L (0.7-2.1) Sodium 136 mEq/L mEq/L (135-145) Potassium 3.9 mEq/L mEq/L (3.3-5.0) Chloride 104 mEq/L mEq/L (97-110) Carbon Dioxide 22 mEq/l mEq/l (22-31) Anion Gap 10 mEq/L mEq/L (8-16) BUN 19 mg/dL mg/dL (7-23) Creatinine 0.9 mg/dL mg/dL (0.7-1.3) Estimated GFR > 60 Glucose 139 mg/dL H mg/dL (70-100) Calcium 8.9 mg/dL mg/dL (8.5-10.4) Total Bilirubin 0.7 mg/dL mg/dL (0.1-1.4) Urine Color YELLOW Urine Appearance CLEAR Urine pH 5.0 (5.0-7.5) Ur Specific [place] 1.031 H (1.002-1.030) Urine Protein 1+ H (NEGATIVE) Urine Ketones TRACE H (NEGATIVE) Urine Blood NEGATIVE (NEGATIVE) Urine Nitrate NEGATIVE (NEGATIVE) Urine Bilirubin NEGATIVE (NEGATIVE) Urine Urobilinogen NEGATIVE EU EU (0.2-1.0) Ur Leukocyte Esterase NEGATIVE (NEGATIVE) Urine RBC 1-3 /hpf /hpf (0-3) Urine WBC 1-3 /hpf /hpf (0-3) Ur Epithelial Cells NONE SEEN /lpf /lpf (NONE-1+) Urine Mucus TRACE /lpf /lpf (NONE-1+) Urine Glucose NEGATIVE (NEGATIVE) 02/07/18 02/07/18 17:10 17:10 WBC 12.05 10^3/uL H 10^3/uL (3.80-9.50) RBC 4.41 10^6/uL 10^6/uL (4.40-6.38) Hgb 14.3 g/dL g/dL (13.7-17.5) Hct 41.8 % % (40.0-51.0) MCV 94.8 fL fL (81.5-99.8) MCH 32.4 pg pg (27.9-34.1) MCHC 34.2 g/dL g/dL (32.4-36.7) RDW 13.9 % % (11.5-15.2) Plt Count 142 10^3/uL L 10^3/uL (150-400) MPV 9.8 fL fL (8.7-11.7) Neut % (Auto) 90.6 % H % (39.3-74.2) Lymph % (Auto) 4.3 % L % (15.0-45.0) [place] % (Auto) 4.3 % L % (4.5-13.0) Eos % (Auto) 0.0 % L % (0.6-7.6) Baso % (Auto) 0.1 % L % (0.3-1.7) Nucleat RBC Rel Count 0.0 % % (0.0-0.2) Absolute Neuts (auto) 10.92 10^3/uL H 10^3/uL (1.70-6.50) Absolute Lymphs (auto) 0.52 10^3/uL L 10^3/uL (1.00-3.00) Absolute Monos (auto) 0.52 10^3/uL 10^3/uL (0.30-0.80) Absolute Eos (auto) 0.00 10^3/uL L 10^3/uL (0.03-0.40) Absolute Basos (auto) 0.01 10^3/uL L 10^3/uL (0.02-0.10) Absolute Nucleated RBC 0.00 10^3/uL 10^3/uL (0-0.01) Immature Gran % 0.7 % % (0.0-1.1) Immature Gran # 0.08 10^3/uL 10^3/uL (0.00-0.10) RBC/WBC/PLT Morphology TNP Platelet Estimate TNP PT 15.1 SEC H SEC (12.0-15.0) INR 1.17 H (0.83-1.16) APTT 27.5 SEC SEC (23.0-38.0) VBG Lactic Acid Sodium Potassium Chloride Carbon Dioxide Anion Gap BUN Creatinine Estimated GFR Glucose Calcium Total Bilirubin Urine Color Urine Appearance Urine pH Ur Specific [place] Urine Protein Urine Ketones Urine Blood Urine Nitrate Urine Bilirubin Urine Urobilinogen Ur Leukocyte Esterase Urine RBC Urine WBC Ur Epithelial Cells Urine Mucus Urine Glucose Medications Given: Discontinued Medications Acetaminophen (Tylenol) 1,000 mg PO EDNOW ONE Stop: 02/07/18 18:53 Last Admin: 02/07/18 18:52 Dose: 1,000 mg Departure - Departure Disposition: [facility] Acute Clinical Impression: Encephalopathy acute Fever Qualifiers: Fever type: unspecified Qualified Code(s): R50.9 - Fever, unspecified Condition: Good
[2018-02-07 17:33] LABS: PLATELET COUNT 142 10^3/uL (150-400)
[2018-02-07 17:53] LABS: INR 1.17 (0.83-1.16); PROTIME(PATIENT) 15.1 SEC (12.0-15.0)
[2018-02-07] MEDS ORDERED: LIDOCAINE 1% 300 MG/30 ML SDV ONE (18:48)
[2018-02-07] MEDS ORDERED: ACETAMINOPHEN 500 MG TAB ONE (18:50)
[2018-02-07] MEDS ORDERED: ACETAMINOPHEN 500 MG TAB PO ONE (18:52)
[2018-02-07] MEDS ORDERED: ONDANSETRON DISINTEGRATING 4 MG TAB PO PRN (20:38)
[2018-02-07] MEDS ORDERED: ACETAMINOPHEN 325 MG TAB PO PRN (20:38)
[2018-02-07] MEDS ORDERED: IBUPROFEN 200 MG TAB PO PRN (20:38)
[2018-02-07] MEDS ORDERED: ONDANSETRON 4 MG/2 ML VIAL IVP PRN (20:38)
[2018-02-07] MEDS ORDERED: NS W/ 20 KCl/L 1,000 ML IV SCH (20:45)
[2018-02-07] MEDS: METOPROLOL TARTRATE 50 MG TAB PO SCH (22:11)
[2018-02-07] MEDS: ASPIRIN EC 81 MG TAB PO SCH (22:13)
--- NOTE | 2018-02-08 00:19 | PDGENHP ---
History and Physical - Chief Complaint Confusion - History of Present Illness 72 yo M w/ hx of HTN, CAD, and ?dementia presents with altered mental status. At the time of my evaluation patient is sleeping and difficult to rouse. He awakes to stimulation but states he just wants to sleep and does not want to answer any questions. He is able to tell me he is in the hospital and his name. He is not sure of the date. He denies any symptoms aside from wanting to sleep. Per review of the ED provider note (Dr. Segal), patient's states the patient has been confused for about 2 days. He complained of body aches but no other localizing symptoms. In the ED he specifically denies infectious ROS aside from fever. In the ED he was noted to be febrile with an elevated WBC of 12,000. CXR, UA, and LP are not consistent with infection. He is being admitted for observation and further infectious work-up. Case discussed with Dr. Maharaj. Previous records reviewed including ED note by Dr. Bean Segal from the date of admission. History Information - Allergies/Home Medication List Allergies/Adverse Reactions: No Known Allergies Allergy (Verified 02/07/18 16:55) Home Medications: Clopidogrel Bisulfate [Plavix (*)] 75 mg PO DAILY 12/03/16 [Last Taken 04/02/17] Enalapril Maleate [Vasotec 10 MG (*)] 20 mg PO DAILY 12/03/16 [Last Taken ] Ezetimibe [Zetia 10 MG (*)] 10 mg PO DAILY 12/03/16 [Last Taken 04/02/17] Herbals/Supplements -Info Only 1 ea PO DAILY 12/03/16 [Last Taken Unknown] Metoprolol Tartrate [Lopressor 50 mg (*)] 50 mg PO BID 12/03/16 [Last Taken ] Multivitamins [Multivitamin (*)] 1 each PO DAILY 12/03/16 [Last Taken Unknown] Aspirin EC [Aspirin EC 81 mg (*)] 162 mg PO HS 02/07/18 [Last Taken Unknown] I have personally reviewed and updated: family history, medical history - Past Medical History Additional medical history: Coronary artery disease status post PCI in August of 2015. Hypertension. Hyperlipidemia. Dementia. Dog bite in November of 2016 - Surgical History Additional surgical history: bilateral knee replacements - Family History Additional family history: no recent sick family contacts, parents are both - Social History Smoking Status: Former smoker Additional social history: lives with Review of Systems Review of Systems: Unable to obtain secondary to mental status Physical Exam Physical Exam: Temp Pulse Resp BP Pulse Ox 37.4 C 70 16 104/46 L 95 02/07/18 22:03 02/07/18 22:03 02/07/18 22:03 02/07/18 22:03 02/07/18 22:03 Constitutional: no apparent distress, appears nourished Eyes: PERRL, anicteric sclera Ears, Nose, Mouth, Throat: moist mucous membranes, no oral mucosal ulcers Cardiovascular: regular rate and rhythym, no murmur, rub, or gallop Respiratory: no respiratory distress Gastrointestinal: normoactive bowel sounds, soft, non-tender abdomen Skin: warm, normal color Neurologic: other (A&Ox2), No facial droop Psychiatric: interacting appropriately, encephalopathic Lab Data & Imaging Review 02/07/18 17:10 02/07/18 17:10 WBC 12.05 10^3/uL (3.80-9.50) H 02/07/18 17:10 RBC 4.41 10^6/uL (4.40-6.38) 02/07/18 17:10 Hgb 14.3 g/dL (13.7-17.5) 02/07/18 17:10 Hct 41.8 % (40.0-51.0) 02/07/18 17:10 MCV 94.8 fL (81.5-99.8) 02/07/18 17:10 MCH 32.4 pg (27.9-34.1) 02/07/18 17:10 MCHC 34.2 g/dL (32.4-36.7) 02/07/18 17:10 RDW 13.9 % (11.5-15.2) 02/07/18 17:10 Plt Count 142 10^3/uL (150-400) L 02/07/18 17:10 MPV 9.8 fL (8.7-11.7) 02/07/18 17:10 Neut % (Auto) 90.6 % (39.3-74.2) H 02/07/18 17:10 Lymph % (Auto) 4.3 % (15.0-45.0) L 02/07/18 17:10 [place] % (Auto) 4.3 % (4.5-13.0) L 02/07/18 17:10 Eos % (Auto) 0.0 % (0.6-7.6) L 02/07/18 17:10 Baso % (Auto) 0.1 % (0.3-1.7) L 02/07/18 17:10 Nucleat RBC Rel Count 0.0 % (0.0-0.2) 02/07/18 17:10 Absolute Neuts (auto) 10.92 10^3/uL (1.70-6.50) H 02/07/18 17:10 Absolute Lymphs (auto) 0.52 10^3/uL (1.00-3.00) L 02/07/18 17:10 Absolute Monos (auto) 0.52 10^3/uL (0.30-0.80) 02/07/18 17:10 Absolute Eos (auto) 0.00 10^3/uL (0.03-0.40) L 02/07/18 17:10 Absolute Basos (auto) 0.01 10^3/uL (0.02-0.10) L 02/07/18 17:10 Absolute Nucleated RBC 0.00 10^3/uL (0-0.01) 02/07/18 17:10 Immature Gran % 0.7 % (0.0-1.1) 02/07/18 17:10 Immature Gran # 0.08 10^3/uL (0.00-0.10) 02/07/18 17:10 RBC/WBC/PLT Morphology TNP 02/07/18 17:10 Platelet Estimate TNP 02/07/18 17:10 PT 15.1 SEC (12.0-15.0) H 02/07/18 17:10 INR 1.17 (0.83-1.16) H 02/07/18 17:10 APTT 27.5 SEC (23.0-38.0) 02/07/18 17:10 VBG Lactic Acid 1.1 mmol/L (0.7-2.1) 02/07/18 17:30 Sodium 136 mEq/L (135-145) 02/07/18 17:10 Potassium 3.9 mEq/L (3.3-5.0) 02/07/18 17:10 Chloride 104 mEq/L (97-110) 02/07/18 17:10 Carbon Dioxide 22 mEq/l (22-31) 02/07/18 17:10 Anion Gap 10 mEq/L (8-16) 02/07/18 17:10 BUN 19 mg/dL (7-23) 02/07/18 17:10 Creatinine 0.9 mg/dL (0.7-1.3) 02/07/18 17:10 Estimated GFR > 60 02/07/18 17:10 Glucose 139 mg/dL (70-100) H 02/07/18 17:10 Calcium 8.9 mg/dL (8.5-10.4) 02/07/18 17:10 Total Bilirubin 0.7 mg/dL (0.1-1.4) 02/07/18 17:10 Urine Color YELLOW 02/07/18 17:59 Urine Appearance CLEAR 02/07/18 17:59 Urine pH 5.0 (5.0-7.5) 02/07/18 17:59 Ur Specific [place] 1.031 (1.002-1.030) H 02/07/18 17:59 Urine Protein 1+ (NEGATIVE) H 02/07/18 17:59 Urine Ketones TRACE (NEGATIVE) H 02/07/18 17:59 Urine Blood NEGATIVE (NEGATIVE) 02/07/18 17:59 Urine Nitrate NEGATIVE (NEGATIVE) 02/07/18 17:59 Urine Bilirubin NEGATIVE (NEGATIVE) 02/07/18 17:59 Urine Urobilinogen NEGATIVE EU (0.2-1.0) 02/07/18 17:59 Ur Leukocyte Esterase NEGATIVE (NEGATIVE) 02/07/18 17:59 Urine RBC 1-3 /hpf (0-3) 02/07/18 17:59 Urine WBC 1-3 /hpf (0-3) 02/07/18 17:59 Ur Epithelial Cells NONE SEEN /lpf (NONE-1+) 02/07/18 17:59 Urine Mucus TRACE /lpf (NONE-1+) 02/07/18 17:59 Urine Glucose NEGATIVE (NEGATIVE) 02/07/18 17:59 CSF Tube Number 3 02/07/18 19:40 CSF Appearance CLEAR (CLEAR) 02/07/18 19:40 CSF Color SLIGHTLY PINK (COLORLESS) 02/07/18 19:40 CSF Supernatant COLORLESS (COLORLESS) 02/07/18 19:40 CSF WBC 10 /mm3 (0-5) H 02/07/18 19:40 CSF RBC 827 /mm3 (0-0) H 02/07/18 19:40 CSF Neutrophils % 40 % (0-6) H 02/07/18 19:40 CSF Lymphocytes % 17 % (0-100) 02/07/18 19:40 CSF Monos/Macrophage % 43 % (0-45) 02/07/18 19:40 CSF Glucose 82 mg/dL (50-75) H 02/07/18 19:40 CSF Total Protein 50 mg/dL (12-60) 02/07/18 19:40 Imaging Review: Imaging Impressions Chest X-Ray 02/07/18 17:24 Impression: 1. No acute cardiopulmonary abnormality. 2. Cardiomegaly with coronary artery disease. 3. Diffuse idiopathic skeletal hyperostosis. Head CT 02/07/18 17:28 Impression: 1. No acute intracranial findings. 2. Diffuse cerebral atrophy with periventricular and subcortical low attenuation consistent with chronic microvascular ischemic gliosis. Findings discussed with jovanny Coles answering for BEAN SEGAL 02/07/2018 at 18:30. Lumbar Puncture 02/07/18 18:41 Impression: Fluoroscopically guided lumbar puncture as above. Visualized and Interpreted EKG results: Yes EKG Interpretation: Positive for: normal sinsus rhythm Assessment & Plan Assessment: 72 yo M w/ hx of CAD, HTN, and dementia presents with acute encephalopathy likely from infectious source. Plan: 1. Acute on chronic encephalopathy - Patient with confusion beyond baseline for the last 2 days. Work-up thus far suggestive of infection (fever, elevated WBC) but without clear source. Possible viral etiology noting only symptom is body aches. CTH, CXR, UA, and LP not suggestive of infection. - Admit for observation - Blood cultures obtained - Procalcitonin pending - Observe off of antibiotics 2. CAD - S/p stents in August of 2015, patient currently denies chest pain. ECG without signs of acute ischemia(personally interpreted). - Continue DAPT, ALMA ROSA, BB, Zetia 3. HTN - Continue home medications 4. Dementia - Currently confused beyond his usual baseline. Diet - Regular Code - Full Ppx - LMWH Dispo - Admit under inpatient status noting I anticipate >2 MN stay
[2018-02-08 05:56] LABS: PLATELET COUNT 112 10^3/uL (150-400)
--- NOTE | 2018-02-08 07:53 | PDMN ---
Medical Necessity Medical necessity: Pt meets INPT criteria per MD as of 02/07/18; est. LOS >2 MN for acute on chronic encephalopathy with temp 39.0, elevated WBC; comorbid CAD s /p stents, htn).
[2018-02-08] MEDS ORDERED: Herbals/Supplements -Info Only PO SCH (09:00)
[2018-02-08] MEDS: ENOXAPARIN 40 MG/0.4 ML SYR SC SCH (09:04)
[2018-02-08] MEDS: METOPROLOL TARTRATE 50 MG TAB PO SCH ×2 (09:04→20:05)
[2018-02-08] MEDS: CLOPIDOGREL BISULFATE 75 MG TAB PO SCH (09:04)
[2018-02-08] MEDS: MULTIVITAMINS 1 EACH TAB PO SCH (09:04)
[2018-02-08] MEDS: ENALAPRIL MALEATE 10 MG TAB PO SCH (09:04)
[2018-02-08] MEDS: EZETIMIBE 10 MG TAB PO SCH (09:13)
--- NOTE | 2018-02-08 14:23 | HOSPPROG ---
Hospitalist Progress Note Assessment/Plan: 72 yo M w/ hx of CAD, HTN, and dementia presents with acute encephalopathy likely from infectious source. First encounter, chart reviewed. D/W Dr Verdugo. Plan: # Acute on chronic encephalopathy -resolved -Patient with confusion beyond baseline for the last 2 days -Work-up thus far suggestive of infection (fever, elevated WBC) but without clear source -Possible viral etiology noting only symptom is body aches. CTH, CXR, UA, not suggestive of infection. -Blood cultures obtained, positive for GPR, await PCR -Procalcitonin pending -Observe off of antibiotics # CAD - S/p stents in August of 2015, patient currently denies chest pain - ECG without signs of acute ischemia(personally interpreted). - Continue DAPT, ALMA ROSA, BB, Zetia # HTN - Continue home medications # Dementia - Currently confused beyond his usual baseline. # Diet - Regular #Code - Full #Ppx - LMWH #Dispo - Admit under inpatient status noting I anticipate >2 MN stay Subjective: Feeling better. No specific complaints. Objective: Vital Signs Temp Pulse Resp BP Pulse Ox 37.4 C 65 16 117/56 L 96 02/08/18 11:04 02/08/18 11:04 02/08/18 11:04 02/08/18 11:04 02/08/18 11:04 Microbiology 02/07/18 19:40 Gram Stain - Final Cerebral Spinal Fluid 02/07/18 19:50 Respiratory Panel (PCR) - Final Nasal, Sinus - Swab No Organism Detected Laboratory Results 02/08/18 05:30 02/08/18 05:30 02/07/18 02/08/18 02/09/18 05:59 05:59 05:59 Intake Total 555 500 Output Total 1 Balance 554 500 PT 15.1 SEC (12.0-15.0) H 02/07/18 17:10 INR 1.17 (0.83-1.16) H 02/07/18 17:10 - Physical Exam Constitutional: no apparent distress, appears nourished, not in pain Eyes: PERRL, anicteric sclera, EOMI Ears, Nose, Mouth, Throat: moist mucous membranes, hearing normal, ears appear normal Cardiovascular: regular rate and rhythym, No JVD, No tachycardia, No edema Respiratory: no respiratory distress, no rales or rhonchi, reduced air movement Gastrointestinal: normoactive bowel sounds, No tenderness, No ascites Skin: warm, normal color, No mottled Musculoskeletal: normal joint ROM, no joint effusions, generalized weakness Psychiatric: interacting appropriately, not anxious, not encephalopathic, poor memory ICD10 Worksheet Patient Problems: Problems Problem Status Onset Crescendo angina Acute Left leg cellulitis Acute Leukocytosis Acute Fever Acute Encephalopathy acute Acute
--- NOTE | 2018-02-08 14:33 | ASMTCMCOM ---
CM Note CM Note Notes: Spoke w/pt and , pt admitted for encephalopathy. He has some mild dementia but his confusion had increased. Per RN, pt has positive blood cx. Physical therapist recommended home care but pt and decline and they declined the need to work with OT. CM available for any changes DC Plan: Independent Date Signed: 02/08/2018 02:33 PM Electronically Signed By:Carolin Vargas RN
[2018-02-08] MEDS: AMPICILLIN SODIUM 2 GM in NS 100 ML IV SCH ×3 (15:57→22:54)
--- NOTE | 2018-02-08 17:51 | GCON ---
[f rep st] CONSULTATION INFECTIOUS DISEASE CONSULTATION REFERRING PHYSICIAN: Myranda Sevilla NP REASON FOR CONSULTATION: Listeria bacteremia and meningitis. HISTORY OF PRESENT ILLNESS: A 72-year-old male with a history of hypertension, coronary artery disease, and dementia who was brought to the emergency room with progressive confusion over the last 2 days. Today, asking pointed questions regarding symptoms, the patient reports some neck pain but no headache or focal weakness. He denies any gastrointestinal symptoms. He does not remember what he eats, but states that they eat out once weekly. In the emergency room, blood cultures were obtained and a lumbar puncture was performed due to acute altered mental status. 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 CSF culture remains negative, but LP showed 10 WBCs, 800 RBCs, 40% neutrophils, 70% lymphocytes, 43% monocytes, glucose 82, protein 50 with a peripheral blood glucose of 139. The patient was admitted to the hospital for monitoring with a query of viral meningitis. Overnight, the patient's mental status returned to almost normal, but that is when blood cultures were identified and ID was consulted. The patient is able to give a poor history and I have been unable to reach the patient's . PAST MEDICAL HISTORY: Coronary artery disease with multiple stents. CABG was recommended but declined due to dementia. Cellulitis of the left lower extremity 2016, dementia, gastroesophageal reflux disease, depression, hyperlipidemia, hypertension, osteoporosis, obstructive sleep apnea, uses CPAP. POSTSURGICAL HISTORY: Stents in 2 2015, cholecystectomy, knee replacement, and rotator cuff surgery. ALLERGIES: NKDA. MEDICATIONS: Aspirin, Plavix, enalapril 20, Lovenox, Zetia, ibuprofen, Lopressor 50 b.i.d., multivitamin, Zofran as needed, and IV fluids. He was started on ampicillin 2 g IV q.4 per my recommendations today. 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 Drinks alcohol daily. He is . He has 1 child. Former tobacco, quit almost 20 years ago with a 20 pack-year history. REVIEW OF SYSTEMS: Pointed questions were asked as per HPI and a 10-point review of systems was negative. PHYSICAL EXAM: T-max 39, T-current 37, blood pressure 105/92, heart rate 73, respiratory rate 99% on room air. In general, this is a fairly robust- appearing male, no acute distress. HEENT: Pinpoint pupils that were reactive. Extraocular muscles appear intact. No conjunctival hemorrhages. Oropharynx: Fair dentition. Moist mucous membranes. Tongue was midline. No cranial nerve abnormalities were noted. NECK: Some mild stiffness was noted, but not yevgeniy meningismus. CARDIOVASCULAR: Regular rate. No murmurs. CHEST: Clear to auscultation bilaterally. ABDOMEN: Soft, nontender. Bowel sounds are present. EXTREMITIES: No clubbing, cyanosis, or edema. NEURO: General motor exam was performed and was negative. Cranial nerves as above. SKIN: No rashes. LABORATORY: White count was 12, today 7.5, hematocrit 38, platelets of 112, 84 % neutrophils. Creatinine 0.8, AST 22, ALT 24, alkaline phosphatase 50, albumin 3.2. TSH 1.6. Procalcitonin 0.8. CSF numbers as per HPI. Gram stain on CSF was negative, and as above, cultures are pending and no growth to date. IMAGING: CT scan was performed that showed diffuse atrophy with periventricular white matter changes and chronic microvascular ischemic gliosis. 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 Typical source of Listeria is contaminated food, difficult to assess. The is no longer present for exam, but nursing staff obtained general history that the patient does not eat any milk or cheese and very little fresh fruit except for eating blueberries on a daily basis. They do eat out per patient and I will follow up on that on additional details when the is available. In the meantime, recommend: 1. Continued high-dose ampicillin. Do not think that gentamicin will add to current regimen as patient is already clinically improved, even before antibiotics. 2. We will continue to follow CSF cultures. 3. Interview to assess for presence of cisterns on their property, as this can be another source of listeria 4. MRI with and without contrast recommended for all cases of Listeria bacteremia and meningitis. 5. [facility] was notified. When is available, I will warn her that they will be contacting her in the future. Thank you for this consultation. We will continue to be seen on a daily basis. Greater than 70 minutes spent on this patients care, greater than 50% of time spent counseling, educating, and coordinating care regarding the above mentioned plan. /[id number]/MODL MTDD
[2018-02-08] MEDS: ASPIRIN EC 81 MG TAB PO SCH (20:05)
[2018-02-09] MEDS: AMPICILLIN SODIUM 2 GM in NS 100 ML IV SCH ×6 (03:30→23:12)
[2018-02-09] MEDS: METOPROLOL TARTRATE 50 MG TAB PO SCH ×2 (09:43→20:01)
[2018-02-09] MEDS: CLOPIDOGREL BISULFATE 75 MG TAB PO SCH (09:43)
[2018-02-09] MEDS: ENOXAPARIN 40 MG/0.4 ML SYR SC SCH (09:44)
[2018-02-09] MEDS: MULTIVITAMINS 1 EACH TAB PO SCH (09:44)
[2018-02-09] MEDS: EZETIMIBE 10 MG TAB PO SCH (09:44)
[2018-02-09] MEDS: ENALAPRIL MALEATE 10 MG TAB PO SCH (09:44)
[2018-02-09] MEDS ORDERED: GADOBUTROL 10 ML VIAL IVP ONE (11:43)
--- NOTE | 2018-02-09 12:25 | PCMIDPN ---
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 Clinically improved today getting closer back to baseline mental status. patient ambulates without difficulty --continue IV ampicillin 2 g IV Q 4 --MRI brain today to r/o abscess --repeat blood cultures tomorrow --eventually will need PICC line for IV antibiotics. 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 Patient eats 1st blueberries on a daily basis, salad occasionally he drinks a lot of milk and does eat cheese. At their home [place] that is 5000 gal and patient goes to this area on a daily basis. They have air conditioning at their home and a whole house humidifier. He drinks a lot of snapple tea Objective: Vital Signs Temp Pulse Resp BP Pulse Ox 37.2 C 55 L 16 141/79 H 96 02/09/18 08:00 02/09/18 09:43 02/09/18 08:00 02/09/18 09:44 02/09/18 08:00 Microbiology 02/07/18 19:40 Gram Stain - Final Cerebral Spinal Fluid Laboratory Results 02/08/18 05:30 02/08/18 05:30 02/08/18 02/09/18 02/10/18 05:59 05:59 05:59 Intake Total 555 2305 Output Total 1 3 Balance 554 2302 - Physical Exam General Appearance: alert, no apparent distress, non-toxic EENT: No scleral icterus, No thrush Respiratory: lungs clear, No accessory muscle use Neck: supple Cardiac/Chest: regular rate, rhythm Extremities: No pedal edema Abdomen: normal bowel sounds, non-tender, soft Neuro/Psych: alert, disoriented to time, other (Flat affect), No motor weakness - Time Spent With Patient Time Spent with Patient: greater than 35 minutes (Reviewing history with patient 's Mishel) Time Spent with Patient: Greater than 35 minutes spent on this patients care, greater than 50% of time spent counseling, educating, and coordinating care regarding the above mentioned plan. ICD10 Worksheet Patient Problems: Problems Problem Status Onset Encephalopathy acute Acute Fever Acute Crescendo angina Acute Left leg cellulitis Acute Leukocytosis Acute
--- NOTE | 2018-02-09 12:48 | HOSPPROG ---
Hospitalist Progress Note Assessment/Plan: 72 yo M w/ hx of CAD, HTN, and dementia presents with acute encephalopathy likely from infectious source. 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 If CSF culture remains negative could consider a 2 week treatment, if positive would treat for 21 days # CAD - S/p stents in August of 2015, patient currently denies chest pain - ECG without signs of acute ischemia(personally interpreted). - Continue DAPT, ALMA ROSA, BB, Zetia # HTN - Continue home medications # Dementia - Currently confused beyond his usual baseline. # Diet - Regular #Code - Full #Ppx - LMWH #Dispo - Admit under inpatient status noting I anticipate >2 MN stay Subjective: Up in room. Feels well. No specific complaints. Some confusion. Objective: Vital Signs Temp Pulse Resp BP Pulse Ox 37.2 C 55 L 16 141/79 H 96 02/09/18 08:00 02/09/18 09:43 02/09/18 08:00 02/09/18 09:44 02/09/18 08:00 Microbiology 02/07/18 19:40 Gram Stain - Final Cerebral Spinal Fluid Laboratory Results 02/08/18 05:30 02/08/18 05:30 02/08/18 02/09/18 02/10/18 05:59 05:59 05:59 Intake Total 555 2305 Output Total 1 3 Balance 554 2302 PT 15.1 SEC (12.0-15.0) H 02/07/18 17:10 INR 1.17 (0.83-1.16) H 02/07/18 17:10 - Physical Exam Constitutional: no apparent distress, appears nourished Eyes: PERRL, anicteric sclera Ears, Nose, Mouth, Throat: moist mucous membranes, hearing normal Cardiovascular: No JVD, No edema Respiratory: no respiratory distress, no rales or rhonchi Gastrointestinal: No tenderness, No ascites Skin: warm, normal color Musculoskeletal: no joint effusions, generalized weakness Psychiatric: interacting appropriately, not anxious, not encephalopathic, poor memory ICD10 Worksheet Patient Problems: Problems Problem Status Onset Crescendo angina Acute Left leg cellulitis Acute Leukocytosis Acute Fever Acute Encephalopathy acute Acute
[2018-02-09] MEDS: ASPIRIN EC 81 MG TAB PO SCH (20:01)
[2018-02-10] MEDS: AMPICILLIN SODIUM 2 GM in NS 100 ML IV SCH ×4 (03:06→15:45)
[2018-02-10 07:34] VITALS: BP 146/71
[2018-02-10] MEDS: ENOXAPARIN 40 MG/0.4 ML SYR SC SCH (07:56)
[2018-02-10] MEDS: MULTIVITAMINS 1 EACH TAB PO SCH (07:56)
[2018-02-10] MEDS: METOPROLOL TARTRATE 50 MG TAB PO SCH (07:56)
[2018-02-10] MEDS: CLOPIDOGREL BISULFATE 75 MG TAB PO SCH (07:56)
[2018-02-10] MEDS: EZETIMIBE 10 MG TAB PO SCH (07:57)
[2018-02-10] MEDS: ENALAPRIL MALEATE 10 MG TAB PO SCH (07:57)
--- NOTE | 2018-02-10 09:58 | PDIAF ---
- Diagnosis Diagnosis: listeria bacteremia Code Status: Full Code - Medication Management Discharge Medications: Medications to Continue on Transfer Clopidogrel Bisulfate [Plavix (*)] 75 mg PO DAILY 12/03/16 [Last Taken 04/02/17] Enalapril Maleate [Vasotec 10 MG (*)] 20 mg PO DAILY 12/03/16 [Last Taken ] Ezetimibe [Zetia 10 MG (*)] 10 mg PO DAILY 12/03/16 [Last Taken 04/02/17] Herbals/Supplements -Info Only 1 ea PO DAILY 12/03/16 [Last Taken Unknown] Metoprolol Tartrate [Lopressor 50 mg (*)] 50 mg PO BID 12/03/16 [Last Taken ] Multivitamins [Multivitamin (*)] 1 each PO DAILY 12/03/16 [Last Taken Unknown] Aspirin EC [Aspirin EC 81 mg (*)] 162 mg PO HS 02/07/18 [Last Taken Unknown] Acetaminophen [Tylenol 325mg (*)] 650 mg PO Q4HRS PRN tab 02/08/18 [Last Taken Unknown] Mill [employer] Fitter Antibiotics: ampicillin 12gm IV continous infusion Halfway Antibiotic Stop Date: 02/24/18 Discharge Medications: Refer to the Discharge Home Medication list for PRN reason. PICC Care - Routine: Yes - Orders Services needed: Home Care, Registered Nurse Home Care Face to Face: I certify that this patient was under my care and that I had the required [id number] encounter meeting the encounter requirements on the discharge day. My findings support the fact that the patient is homebound as defined in Home Care Face to Face Continued: CMS Chapter 7 Medicare Benefits Manual 30.1.1 , The condition of the patient is such that there exists a normal inability to leave home and consequently, leaving home would require a considerable and taxing effort. Diet Recommendation: no restrictions on diet Additional Instructions: Follow up with your primary care physician for pending lab results. - Labs/Radiology CBC w/diff Date: 02/17/18 (weekly saturday) CMP Date: 02/17/18 (weekly saturday) Call or Fax Lab and Imaging Results to: Kimberly Verdugo MD fax [phone] - Follow Up Care Current Providers and Referrals: Trini Jensen MD [Primary Care Provider] - As per Instructions
[2018-02-10] MEDS ORDERED: ALTEPLASE 2 MG VIAL IVP PRN (10:07)
--- NOTE | 2018-02-10 10:31 | PCMIDPN ---
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 MRI negative. 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 CSF cultures: NGTD Subjective: patient without c/o this AM Called and updated about rapid recovery No events overnight Objective: Vital Signs Temp Pulse Resp BP Pulse Ox 37.0 C 54 L 18 146/71 H 97 02/10/18 07:30 02/10/18 07:56 02/10/18 07:30 02/10/18 07:57 02/10/18 07:30 Microbiology 02/07/18 19:40 Gram Stain - Final Cerebral Spinal Fluid Laboratory Results 02/08/18 05:30 02/08/18 05:30 02/09/18 02/10/18 02/11/18 05:59 05:59 05:59 Intake Total 2305 400 Output Total 3 Balance 2302 400 - Physical Exam General Appearance: alert, no apparent distress EENT: No thrush Respiratory: lungs clear, No accessory muscle use Neck: supple Cardiac/Chest: bradycardia Extremities: No pedal edema Skin: No rash Neuro/Psych: alert, confused, other (Ambulating without assistance) - Time Spent With Patient Time Spent with Patient: greater than 35 minutes Time Spent with Patient: Greater than 35 minutes spent on this patients care, greater than 50% of time spent counseling, educating, and coordinating care regarding the above mentioned plan. ICD10 Worksheet Patient Problems: Problems Problem Status Onset Encephalopathy acute Acute Fever Acute Crescendo angina Acute Left leg cellulitis Acute Leukocytosis Acute
--- NOTE | 2018-02-10 12:25 | PDIAF ---
- Diagnosis Diagnosis: listeria bacteremia Code Status: Full Code - Medication Management Discharge Medications: Medications to Continue on Transfer Clopidogrel Bisulfate [Plavix (*)] 75 mg PO DAILY 12/03/16 [Last Taken 04/02/17] Enalapril Maleate [Vasotec 10 MG (*)] 20 mg PO DAILY 12/03/16 [Last Taken ] Ezetimibe [Zetia 10 MG (*)] 10 mg PO DAILY 12/03/16 [Last Taken 04/02/17] Herbals/Supplements -Info Only 1 ea PO DAILY 12/03/16 [Last Taken Unknown] Metoprolol Tartrate [Lopressor 50 mg (*)] 50 mg PO BID 12/03/16 [Last Taken ] Multivitamins [Multivitamin (*)] 1 each PO DAILY 12/03/16 [Last Taken Unknown] Aspirin EC [Aspirin EC 81 mg (*)] 162 mg PO HS 02/07/18 [Last Taken Unknown] Acetaminophen [Tylenol 325mg (*)] 650 mg PO Q4HRS PRN tab 02/08/18 [Last Taken Unknown] Alteplase [Cathflo Activase 2 mg (*)] 2 mg IVP PRN PRN vial 02/10/18 [Last Taken Unknown] Ampicillin Sodium [Ampicillin 2 GM VIAL] 2 gm IV Q4H vial 02/10/18 [Last Taken Unknown] Alf Antibiotics: ampicillin 12gm IV continous infusion Last Picker Antibiotic Stop Date: 02/24/18 Discharge Medications: Refer to the Discharge Home Medication list for PRN reason. PICC Care - Routine: Yes - Orders Services needed: Home Care, Registered Nurse Home Care Face to Face: I certify that this patient was under my care and that I had the required [id number] encounter meeting the encounter requirements on the discharge day. My findings support the fact that the patient is homebound as defined in Home Care Face to Face Continued: CMS Chapter 7 Medicare Benefits Manual 30.1.1 , The condition of the patient is such that there exists a normal inability to leave home and consequently, leaving home would require a considerable and taxing effort. Diet Recommendation: no restrictions on diet Additional Instructions: Follow up with your primary care physician for pending lab results. - Labs/Radiology CBC w/diff Date: 02/17/18 (weekly saturday) CMP Date: 02/17/18 Call or Fax Lab and Imaging Results to: Kimberly Verdugo MD fax [phone] - Follow Up Care Current Providers and Referrals: Trini Jensen MD [Primary Care Provider] - As per Instructions
--- NOTE | 2018-02-10 12:54 | GDS ---
[f rep st] DISCHARGE SUMMARY DISCHARGE DIAGNOSES: 1. Acute on chronic encephalopathy. 2. Listeria bacteremia with signs of meningitis. 3. Coronary artery disease. 4. Hypertension. 5. Chronic dementia. PROCEDURES: 1. MRI of the brain. 2. Lumbar puncture. 3. CT of the head. PHYSICAL EXAMINATION: GENERAL: The patient is alert. VITAL SIGNS: Afebrile at 37, pulse 54, respi ratory rate is 18, blood pressure is 146/71. He is saturating 97% on room air. I have seen evaluate d the patient on the day of discharge. HOSPITAL COURSE: The patient is a 72-year-old male who presented to the emergency room with complain ts of confusion. He was evaluated and diagnosed with: 1. Acute on chronic encephalopathy. Patient's mentation has returned to baseline. This Is likely s econdary to acute infectious process. 2. Listeria bacteremia with meningitis. The patient will require IV ampicillin in the outpatient se tting. A PICC line has been placed and he will continue this outside the hospital at home. He will follow up with Infectious Disease. 3. Coronary artery disease. This is stable. 4. Hypertension. His home medications have been continued. 5. Dementia. He is at baseline. DISPOSITION: The patient will be discharged home with home health care and his . He has a PICC line placed. Outpatient IV ampicillin will be provided for him at the time of disposition. Followup will also be with his primary care physician, Dr. Trini Jensen. I spent greater than 35 minutes in the care, coordination, and management of the patient's dispositio n. /[id number]/MODL
--- NOTE | 2018-02-10 14:01 | ASDISCHSUM ---
Discharge Information Plan Status:Home with Home Health Medically Cleared to Leave: Discharge Date: D/C Disposition: [facility] D/C Disposition:[facility] [place] [place] Projected Discharge Date:02/10/2018 11:00 AM Transportation at D/C: Discharge Delay Reason: Follow-Up Date:02/10/2018 11:00 AM Discharge Slot: Final Diagnosis: Placement Information Referral Type:Home Infusion Referral ID:[id number] Provider Name:[facility] ([facility] Address 1:[address] Address 2: City:[place] Selection Factors: State:[place] Referral Type:*Home Health Care Services Referral ID:[id number] Provider Name:[facility] ([facility]) Address 1:[address] [address] [facility] [address] Address 2: City:[place] Selection Factors: State:[place] Patient Contact Information Contact Name:MARISA Relationship: Address:[facility] [facility] City:[place] Alternate Phone: State/Zip Code:[place] [address] Email: Financial Information Financial Class:Medicare Primary Plan Desc:MEDICARE INPATIENT Primary Plan Number:[id number] Secondary Plan Desc:[employer] Secondary Plan Number:[id number] Assessment Information [facility] CM Progress Note CM Note CM Note Notes: Spoke w/pt and , pt admitted for encephalopathy. He has some mild dementia but his confusion had increased. Per RN, pt has positive blood cx. Physical therapist recommended home care but pt and decline and they declined the need to work with OT. CM available for any changes DC Plan: Independent Date Signed: 02/08/2018 02:33 PM Electronically Signed By:Carolin Vargas RN LACE LACE Length of stay for Answers: 3 days current admission Acuity / Level of Answers: Yes Care: Did the patient have an inpatient admission? Comorbidities - select Answers: Coronary Artery Disease all that apply Dementia Other Notes: HTN # of Emergency department Answers: 1-2 visits in the last 6 months Score: 13 Date Signed: 02/10/2018 01:56 PM Electronically Signed By:KATHE Rod Case Management Discharge Plan Note Case Management Discharge Discharge Order Complete? Answers: Yes Patient to Obtain Answers: via Family Medications Transportation Arranged Answers: Family/Friends EMTALA Complete Answers: No Case Management Transport Answers: No Form Complete Faxed Final Orders Answers: Yes Agency/Facility Transfer Answers: Yes Report Printed & Faxed to Receiving Agency Family Notified Answers: No Discharge Comments Notes: Pts case discussed w/ Dr. Verdugo, Myranda Sevilla NP, and ADAM Jeter regarding d/c POC. Pt is being discharged today. Referral made to [facility]. [facility] reports that pt will owe $550/week. [facility] spoke w/ pts and she is okay w/ cost. DC orders sent to [facility]. Referral made to [facility]. [facility] is unable to staff it. Referral made to [facility]. [facility] is able to accept and see pt daily per the request of . CM to send over picc line report to [facility] tomorrow. Picc line report is unavailable at this time. PT has cleared pt to d/c home without any needs. CM available for changes. Plan: ADAM Condon with [facility] Date Signed: 02/10/2018 01:55 PM Electronically Signed By:KATHE Rod Intervention Information
--- NOTE | 2018-02-10 14:01 | ASMTDCNOTE ---
Case Management Discharge Discharge Order Complete? Answers: Yes Patient to Obtain Answers: via Family Medications Transportation Arranged Answers: Family/Friends EMTALA Complete Answers: No Case Management Transport Answers: No Form Complete Faxed Final Orders Answers: Yes Agency/Facility Transfer Answers: Yes Report Printed & Faxed to Receiving Agency Family Notified Answers: No Discharge Comments Notes: Pts case discussed w/ Dr. Verdugo, Myranda Sevilla COLUMNIST/COMMENTATOR, and Steffany RN regarding d/c POC. Pt is being discharged today. Referral made to [facility]. [facility] reports that pt will owe $550/week. [facility] spoke w/ pts and she is okay w/ cost. DC orders sent to [facility]. Referral made to [facility]. [facility] is unable to staff it. Referral made to [facility]. [facility] is able to accept and see pt daily per the request of . CM to send over picc line report to [facility] tomorrow. Picc line report is unavailable at this time. PT has cleared pt to d/c home without any needs. CM available for changes. Plan: ADAM Condon with [facility] Date Signed: 02/10/2018 01:55 PM Electronically Signed By:KATHE Rod
== END 2018-02-10 18:23 | disposition home health service (06) | DRG 867 ==
LOC: F3E 21:57
PROVIDERS: ADMIT Internal Medicine; ATTEND Internal Medicine
PROC: 009U3ZX Drainage of Spinal Canal, Percutaneous Approach, Diagnostic (ICD-10-PCS; principal; 2018-02-07)
PROC: 009U3ZX Drainage of Spinal Canal, Percutaneous Approach, Diagnostic (ICD-10-PCS; 2018-02-07)
PROC: 02HV33Z Insertion of Infusion Device into Superior Vena Cava, Percutaneous Approach (ICD-10-PCS; 2018-02-10)
DX: A32.11 Listerial meningitis (principal); R78.81 Bacteremia; G93.41 Metabolic encephalopathy; I25.10 Atherosclerotic heart disease of native coronary artery without angina pectoris; Z95.5 Presence of coronary angioplasty implant and graft; I10 Essential (primary) hypertension; F03.90 Unspecified dementia, unspecified severity, without behavioral disturbance, psychotic disturbance, mood disturbance, and anxiety; G47.33 Obstructive sleep apnea (adult) (pediatric); Z96.653 Presence of artificial knee joint, bilateral; Z87.891 Personal history of nicotine dependence
CPT/HCPCS: 87798-90; 92523-GN; 97116-GP; 97161-GP; A9585; C1751; G8978-GP-CI; G8979-GP-CI; G9168-GN-CL; G9169-GN-CL; G9170-GN-CL; J0290; J1650